=== PATIENT | female | born 1980 | race Caucasian/White ===

== ENCOUNTER 2020-10-19 12:59 | Outpatient (REF) | payer OTHER, SELFPAY | END 2020-10-19 13:00 | disposition home or self-care (01) | LOC: HO.HMGCLDS 12:59 | PROVIDERS: Visit Provider Internal Medicine | DX: Z20.828 Contact with and (suspected) exposure to other viral communicable diseases (principal) | CPT/HCPCS: C9803; U0003 ==

== ENCOUNTER 2021-02-18 13:09 | Outpatient (REF) | payer OTHER, SELFPAY ==
--- NOTE | ~2021-02-18 | MM_ITS ---
EXAMINATION: MM SCREENING DIGITAL BREAST TOMOSYNTHESIS, BILATERAL CLINICAL INFORMATION: Screening. Asymptomatic. Age 41. No prior mammography. No known family history breast cancer. The lifetime risk of breast cancer based on the Tyrer-Cuzick Model is 8%. COMPARISON: None (current study represents initial baseline exam). TECHNIQUE: Digital breast tomosynthesis is performed in both the craniocaudal and mediolateral oblique views along with computer-aided detection (CAD). Synthesized 2D images are generated from the tomosynthesis. Additional left cleavage view is provided. FINDINGS: There are scattered areas of fibroglandular density (ACR BI-RADS breast composition Category b). There are no significant masses, abnormal calcifications, or other abnormalities. The axilla and skin contours are unremarkable. MM/MM tomosynthesis screening BI IMPRESSION: No mammographic evidence of malignancy. ASSESSMENT: BI-RADS 1: Negative RECOMMENDATION: Routine annual mammography screening. This patient's information was entered into a reminder system with a target due date for their next mammogram.
== END 2021-02-18 13:10 | disposition home or self-care (01) ==
LOC: HO.MAMMO 13:09
PROVIDERS: Visit Provider Obstetrics & Gynecology
DX: Z12.31 Encounter for screening mammogram for malignant neoplasm of breast (principal)
CPT/HCPCS: 77063; 77067

== ENCOUNTER 2022-06-22 12:40 | Outpatient (REF) | payer OTHER, SELFPAY ==
--- NOTE | ~2022-06-22 | MM_ITS ---
EXAMINATION: MM SCREENING DIGITAL BREAST TOMOSYNTHESIS, BILATERAL CLINICAL INFORMATION: Screening. Asymptomatic. The lifetime risk of breast cancer based on the Tyrer-Cuzick Model is 11.3%. COMPARISON: Mammography: February 18, 2021 TECHNIQUE: Digital breast tomosynthesis is performed in both the craniocaudal and mediolateral oblique views along with computer-aided detection (CAD). Synthesized 2D images are generated from the tomosynthesis. FINDINGS: The breasts are heterogeneously dense, which may obscure small masses (ACR BI-RADS breast composition Category c). There are no significant masses, abnormal calcifications, or other abnormalities. MM/MM tomosynthesis screening BI IMPRESSION: There are no significant changes from prior study. ASSESSMENT: BI-RADS 1: Negative RECOMMENDATION: Routine annual mammography screening. This patient's information was entered into a reminder system with a target due date for their next mammogram.
== END 2022-06-22 12:41 | disposition home or self-care (01) ==
LOC: HO.MAMMO 12:40
PROVIDERS: Absent Provider Obstetrics & Gynecology; PCP Nurse Practitioner Gerontology; Visit Provider Nurse Practitioner Gerontology
DX: Z12.31 Encounter for screening mammogram for malignant neoplasm of breast (principal)
CPT/HCPCS: 77063; 77067

== ENCOUNTER 2022-07-13 09:03 | Outpatient (REF) | payer OTHER, SELFPAY ==
[2022-07-13 14:02] LABS: CT PCR NOT DETECTED (Not Detect.); NG PCR NOT DETECTED (Not Detect.)
== END 2022-07-13 09:04 | disposition home or self-care (01) ==
LOC: HO.LAB 09:03
PROVIDERS: Visit Provider Obstetrics & Gynecology
DX: N93.9 Abnormal uterine and vaginal bleeding, unspecified (principal)
CPT/HCPCS: 87491; 87591

== ENCOUNTER 2022-08-03 15:07 | Outpatient (REF) | payer OTHER, SELFPAY ==
--- NOTE | ~2022-08-03 | US_ITS ---
EXAM: Pelvic Ultrasound CLINICAL INDICATION: Abnormal bleeding COMPARISON: Pelvic ultrasound May 20, 2020 TECHNIQUE: The pelvis was evaluated using transabdominal and transvaginal imaging. FINDINGS: The uterus measures 8.8 x 5.3 x 5.9 cm in longitudinal by AP by transverse dimension. The endometrial stripe is not thickened and measures 0.4 cm. Uterus demonstrates overall heterogeneous echotexture although at least 3 discrete fibroids are noted, the largest measuring approximately 2.7 cm (previously 2.2 cm). The cervix measures approximately 3 cm in length. Small nabothian cyst is noted. The left ovary measures approximately 2.9 x 2.0 x 2.2 cm and is normal. The right ovary measures approximately 4.2 x 3.0 x 3.8 cm and contains a simple appearing 2.4 cm cyst. There is no free fluid in the pelvis. US/US pelvic and transvaginal IMPRESSION: -Normal thickness endometrial stripe. -Uterine fibroids again noted.
== END 2022-08-03 15:08 | disposition home or self-care (01) ==
LOC: HO.HMGCX 15:07
PROVIDERS: PCP Nurse Practitioner Gerontology; Visit Provider Obstetrics & Gynecology
DX: N93.9 Abnormal uterine and vaginal bleeding, unspecified (principal)
CPT/HCPCS: 76830; 76856

== ENCOUNTER 2022-08-17 08:36 | Outpatient (REF) | payer OTHER, SELFPAY ==
[2022-08-17 10:17] LABS: Hematocrit 42.1 % (37.0-47.0); Hemoglobin 13.5 g/dl (12.0-16.0); Mean Corpuscular HGB Conc 32.1 g/dl (31.0-35.0); Mean Corpuscular Hemoglobin 29.1 pg (27.0-33.0); Mean Corpuscular Volume 90.7 fL (80.0-98.0); Mean Platelet Volume 11.7 fL (9.4-12.3); Platelet Count 239 X10*3/uL (160-400); Red Blood Count 4.64 X10*6/uL (4.20-5.50); Red Cell Distribution Width 12.5 % (11.0-16.0); White Blood Count 5.5 X10*3/uL (4.8-10.8)
[2022-08-17 10:59] LABS: HCG Quantitative < 2 mIU/mL; TSH reflex Free T4 0.68 uIU/mL (0.32-4.0)
[2022-08-18 19:56] LABS: Follicle Stimulating Hormone 5.7 mIU/mL; Lutenizing Hormone 4.2 mIU/mL
== END 2022-08-17 08:37 | disposition home or self-care (01) ==
LOC: HO.LNP 08:36
PROVIDERS: PCP Nurse Practitioner Gerontology; Visit Provider Obstetrics & Gynecology
DX: N93.9 Abnormal uterine and vaginal bleeding, unspecified (principal)
CPT/HCPCS: 58100; 81025; 83001; 83002; 84443; 84702; 85027; 88305

== ENCOUNTER 2023-06-21 12:47 | Outpatient (REF) | payer OTHER, SELFPAY ==
--- NOTE | ~2023-06-21 | US_ITS ---
EXAMINATION: US PELVIS CLINICAL INFORMATION: Benign neoplasm of connective and other soft tissue, unspecified COMPARISON: Pelvic ultrasound examinations dating between 08/03/2022 and 06/03/2008 TECHNIQUE: Ultrasound of the pelvis is performed using both transabdominal and transvaginal transducers along with Doppler. Transvaginal imaging is performed due to inadequate visualization transabdominally. FINDINGS: Uterus: The uterus is anteverted and measures 10.0 x 5.1 x 5.8 cm. Limited visualization of the endometrial stripe. The uterus is smooth in contour. Suspect 2.8 cm or less intramural uterine leiomyomata. Cervical nabothian cysts. Dystrophic calcifications within the cervical canal, possibly related to prior instrumentation. Adnexa: Both ovaries are visualized. There is normal color flow to the adnexa. There is no ovarian torsion identified. There is no pelvic ascites or fluid collection. Bilateral ovarian follicles. Right ovary measures 3.7 x 2.4 x 2.3 cm. Left ovary measures 2.6 x 2.0 x 2.3 cm. US/US pelvic and transvaginal IMPRESSION: Limited visualization of the endometrial stripe. Suspect 2.8 cm or less intramural uterine leiomyomata. Cervical nabothian cysts. Dystrophic calcifications within the cervical canal, possibly related to prior instrumentation.
== END 2023-06-21 12:48 | disposition home or self-care (01) ==
LOC: HO.HMGCX 12:47
PROVIDERS: PCP Nurse Practitioner Gerontology; Visit Provider Obstetrics & Gynecology
DX: D21.9 Benign neoplasm of connective and other soft tissue, unspecified (principal)
CPT/HCPCS: 76830; 76856

== ENCOUNTER 2023-07-04 08:55 | Outpatient (AMB) | payer OTHER, SELFPAY ==
[2023-07-04 09:28] VITALS: BP 108/66; BMI 25.7
--- NOTE | 2023-07-04 09:28 | A.OFFVIS_ITS ---
Intake Vital Signs 07/04/23 09:28 Height 5 ft 7 in Weight 164 lb BMI 25.7 BP 108/66 Intake Visit Reasons: US Follow Up Assessment Specialist Required: No Allergies carisoprodol [From Soma] Allergy (Severe, Verified 07/04/23 09:28) DIFFICULTY BREATHING ciprofloxacin [From CIPRO] Allergy (Severe, Verified 07/04/23 09:28) DIFFICULTY BREATHING grapefruit [GRAPEFRUIT] Allergy (Severe, Verified 07/04/23 09:28) THROAT SWELLS walnut Allergy (Severe, Verified 07/04/23 09:28) THROAT SWELLING Penicillins Allergy (Mild, Verified 07/04/23 09:28) HIVES penicillin V Allergy (Unknown, Verified 07/04/23 09:28) Unknown erythromycin base [From Erythrocin] Adverse Reaction (Mild, Verified 07/04/23 09:28) NAUSEA & VOMITING (TO EES) Erythromycin Allergy (Unknown, Uncoded 07/04/23 09:28) Unknown Is last menstrual period known: Yes Last menstrual period: 07/19/23 Post menopausal: No HPI HPI Comments History of Present Illness Details Presenting for follow-up pelvic ultrasound done on 06/21/2023 which showed the following: Uterus: The uterus is anteverted and measures 10.0 x 5.1 x 5.8 cm. Limited visualization of the endometrial stripe. The uterus is smooth in contour. Suspect 2.8 cm or less intramural uterine leiomyomata. Cervical nabothian cysts. Dystrophic calcifications within the cervical canal, possibly related to prior instrumentation. Adnexa: Both ovaries are visualized. There is normal color flow to the adnexa. There is no ovarian torsion identified.? There is no pelvic ascites or fluid collection. Bilateral ovarian follicles. Right ovary measures 3.7 x 2.4 x 2.3 cm. Left ovary measures 2.6 x 2.0 x 2.3 cm. Pelvic ultrasound done on 08/03/2022 showed: Uterus demonstrates overall heterogeneous echotexture although at least 3 discrete fibroids are noted, the largest measuring approximately 2.7 cm (previously 2.2 cm). The patient is doing well with no complaints, no abnormal uterine bleeding, no pelvic pressure or pelvic pain . [facility] Medical History Anxiety Migraine headache Surgical History H/O resection of liver History of endometrial ablation Hx of section Social History Patient Tobacco Use Status: Former Tobacco user Female Reproductive History Menstrual Age of Menarche: 12 Date of last menstrual period: 07/19/23 control method: none Date of last pap smear: 07/28/20 (negative) Date of Mammogram: 06/22/22 Review of Systems Const All systems reviewed & are unremarkable except as noted in HPI and below Reports as per HPI and Reports no additional complaints GI Reports no additional complaints Reports no additional complaints Physical Exam Vital Signs: Last Vital Signs BP 108/66 07/04/23 09:28 BMI result Body Mass Index 25.7 Assessment & Plan Assessment & Plan (1) Uterine myoma: Code(s): D25.9 - Leiomyoma of uterus, unspecified Plan: Discussed with the patient the findings on pelvic ultrasound & the risk of myosarcoma; discussed with the patient the options of treatment including expectant management versus hysterectomy; the pros and cons, risks benefits of each approach were discussed with the patient including the fact that in cases of myosarcoma, surgical treatment can lead to early diagnosis and positively affects the prognosis; after further discussion, the patient decided to proceed with expectant management. Will repeat pelvic ultrasound periodically. Instructions given to patient to call in case any of the following occurs: pressure symptoms, abnormal uterine bleeding, pelvic pain; and to schedule a future office follow-up appointment for reassessment and to order a repeat ultrasound . All questions answered, the patient verbalized understanding and agreed with the plan . Coding Level of Care Code Est Pt Level 3 (13944) Diagnoses Uterine myoma D25.9
== END 2023-07-04 10:37 | disposition home or self-care (01) ==
LOC: HO.HWS 08:55
PROVIDERS: PCP Nurse Practitioner Gerontology; Visit Provider Obstetrics & Gynecology
DX: D25.9 Leiomyoma of uterus, unspecified (principal)
CPT/HCPCS: 99213

== ENCOUNTER → 2023-07-04 08:55 | Outpatient (BNVA) | payer OTHER, SELFPAY | PROVIDERS: PCP Nurse Practitioner Gerontology; Visit Provider Obstetrics & Gynecology ==

== ENCOUNTER 2023-07-06 07:38 | Outpatient (REF) | payer OTHER, SELFPAY ==
--- NOTE | ~2023-07-06 | MM_ITS ---
EXAMINATION: MM SCREENING DIGITAL BREAST TOMOSYNTHESIS, BILATERAL CLINICAL INFORMATION: Screening. Asymptomatic. COMPARISON: Mammography: This study is compared with prior exams dating back to 2020. TECHNIQUE: Digital breast tomosynthesis is performed in both the craniocaudal and mediolateral oblique views along with computer-aided detection (CAD). Synthesized 2D images are generated from the tomosynthesis. FINDINGS: There are scattered areas of fibroglandular density (ACR BI-RADS breast composition Category b). There is a focal asymmetry in the upper-outer quadrant of the right breast. Additional mammographic imaging is advised. Sonography is at the discretion of the diagnostic radiologist. There are no other significant findings in the remainder of the right breast. In the left breast, there are no significant masses, abnormal calcifications, or other abnormalities. MM/MM tomosynthesis screening BI IMPRESSION: Focal asymmetry of the right breast warrants additional mammographic imaging. No mammographic signs of malignancy left breast. ASSESSMENT: BI-RADS BI-RADS 0 - Incomplete: Needs additional Imaging. RECOMMENDATION: 1. Additional views of the right breast. 2. Targeted ultrasound if warranted after review of the additional views. 3. Radiology department staff will contact the patient for additional imaging. Additional Imaging required This examination should not preclude the clinical evaluation of a suspicious palpable abnormality. This patient's information was entered into a reminder system with a target due date for their next mammogram.
== END 2023-07-06 07:39 | disposition home or self-care (01) ==
LOC: HO.MAMMO 07:38
PROVIDERS: PCP Nurse Practitioner Gerontology; Visit Provider Nurse Practitioner Gerontology
DX: Z12.31 Encounter for screening mammogram for malignant neoplasm of breast (principal)
CPT/HCPCS: 77063; 77067

== ENCOUNTER → 2023-07-06 07:45 | Outpatient (BNV) | payer OTHER, SELFPAY | PROVIDERS: PCP Nurse Practitioner Gerontology; Visit Provider Radiology Diagnostic Radiology | DX: Z12.31 Encounter for screening mammogram for malignant neoplasm of breast (principal) | CPT/HCPCS: 77063; 77067 ==

== ENCOUNTER 2023-07-31 07:56 | Outpatient (AMB) | payer OTHER, SELFPAY ==
--- NOTE | 2023-07-31 08:13 | A.OFFVIS_ITS ---
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 Intake Note: no nconcerns Business Objects Developer Required: No Information Interpreted: non-clinical & clinical Open End Spinning Operator: Open End Spinning Operator Present (Kim SAAVEDRA) Accompanied by: Self / Same As Patient Allergies carisoprodol [From Soma] Allergy (Severe, Verified 07/31/23 08:19) DIFFICULTY BREATHING ciprofloxacin [From CIPRO] Allergy (Severe, Verified 07/31/23 08:19) DIFFICULTY BREATHING grapefruit [GRAPEFRUIT] Allergy (Severe, Verified 07/31/23 08:19) THROAT SWELLS walnut Allergy (Severe, Verified 07/31/23 08:19) THROAT SWELLING Penicillins Allergy (Mild, Verified 07/31/23 08:19) HIVES penicillin V Allergy (Unknown, Verified 07/31/23 08:19) Unknown erythromycin base [From Erythrocin] Adverse Reaction (Mild, Verified 07/31/23 08:19) NAUSEA & VOMITING (TO EES) Erythromycin Allergy (Unknown, Uncoded 07/31/23 08:19) Unknown Is last menstrual period known: Yes Last menstrual period: 07/14/23 HPI HPI Comments History of Present Illness Details Presenting for annual exam. No complaints. 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 Sexual orientation: Straight/Heterosexual Gender identity: Female Female Reproductive History Menstrual Age of Menarche: 12 Duration of menses: 6-7 days Date of last menstrual period: 07/14/23 control method: other (vasectomy) Total pregnancies: 2 Full term: 2 Number of Living Children: 2 Date of last pap smear: 07/28/20 Date of Mammogram: 07/06/23 Review of Systems Const All systems reviewed & are unremarkable except as noted in HPI and below Card Reports as per HPI Resp Reports as per HPI GI Reports as per HPI and Reports no additional complaints Reports as per HPI Physical Exam Vital Signs: BMI result Body Mass Index 25.8 Const General: cooperative, healthy appearing and comfortable Chest Chest palpation & inspection: normal inspection of the chest and normal palpation of entire chest wall Breast/axilla inspection: normal inspection of the breasts and normal inspection of the axillae Breast/axilla palpation: normal palpation of the breasts, normal palpation of the axillae and no axillary lymphadenopathy Resp Effort & Inspection: normal respiratory effort Auscultation: clear to auscultation bilaterally Percussion: percussion normal Cardio Palpation: normal PMI Rate: regular rate Rhythm: regular rhythm Heart sounds: no murmurs and no rubs Peripheral pulses: Peripheral pulses 2+ throughout GI Inspection: Yes normal to inspection Palpation (GI): Soft to palpation, nontender, no guarding, not rigid and No hepatosplenomegaly present Percussion: Yes normal to percussion Auscultation: normal bowel sounds Rectal Exam - Female: deferred General: Yes bladder normal to palpation External Female Exam: No lesion Speculum Exam - Vagina: normal appearance of the vagina, normal palpation, normal vaginal discharge and not erythematous Speculum Exam - Cervix: normal appearance of the cervix and normal palpation Bimanual exam- vagina & uterus: normal bimanual exam, normal palpation, uterine size normal, bladder normal to palpation, consistency normal and normal palpation Bimanual Exam- Adnexa, other: normal adnexae, no masses and no tenderness Assessment & Plan Assessment & Plan (1) Well woman exam: Code(s): Z01.419 - Encounter for gynecological examination (general) (routine) without abnormal findings Plan: Cotesting not indicated this year. Mammogram additional views scheduled in a week. Counseled the patient about the recommended dietary allowance of 1000 mg of Calcium & 600 IU of vitamin D. The patient was instructed to perform monthly self-breast exams and to schedule an annual exam in a year; All questions answered and the patient verbalized understanding. Instructed the patient to schedule annual exam in a year Coding Level of Care Code Est Pt Prev Care 40-64y(11370) Diagnoses Well woman exam Z01.419
[2023-07-31 08:18] VITALS: BP 106/62; BMI 25.8
== END 2023-07-31 08:35 | disposition home or self-care (01) ==
PROVIDERS: Visit Provider Obstetrics & Gynecology
DX: Z01.419 Encounter for gynecological examination (general) (routine) without abnormal findings (principal)
CPT/HCPCS: 99396

== ENCOUNTER → 2023-07-31 07:56 | Outpatient (BNVA) | payer OTHER, SELFPAY | PROVIDERS: Visit Provider Obstetrics & Gynecology ==

== ENCOUNTER 2023-08-08 13:23 | Outpatient (REF) | payer OTHER, SELFPAY ==
--- NOTE | ~2023-08-08 | MM_ITS ---
EXAMINATION: MM DIAGNOSTIC DIGITAL BREAST TOMOSYNTHESIS, RIGHT US BREAST LIMITED, RIGHT MAMMOGRAPHY: CLINICAL INFORMATION: Evaluate focal asymmetry right breast upper outer quadrant seen on screening exam. COMPARISON: Mammography: Screening mammography 07/06/2023, 06/22/2022, 06/20/2021. TECHNIQUE: Digital breast tomosynthesis is performed in both the craniocaudal and mediolateral oblique views along with computer-aided detection (CAD). Synthesized 2D images are generated from the tomosynthesis. FINDINGS: There are scattered areas of fibroglandular density (ACR BI-RADS breast composition Category b). Focal asymmetry in the upper outer quadrant of the right breast does not definitively persist on spot compression views. No suspicious mass or area of architectural distortion is identified. There is a benign-appearing lymph node in the tail of Yang. There are no new suspicious abnormalities in the right breast. ULTRASOUND: CLINICAL INFORMATION: Evaluate focal asymmetric density right upper quadrant, axillary tail region. COMPARISON: None TECHNIQUE: Targeted sonographic evaluation was performed using a high frequency linear transducer. Selected archived documentation. FINDINGS: RIGHT BREAST: There is a mixture of fatty and fibroglandular tissue. No suspicious mass is seen. There is no pathologic acoustic shadowing. There is no cystic abnormality. No ultrasonographic abnormalities identified. MM/MM tomosynthesis added views R IMPRESSION: Focal asymmetry upper outer quadrant right breast shows no imaging correlate and is benign, related to an area of dense fibroglandular tissue. Recommend the patient resume annual screening. OVERALL ASSESSMENT: Mammography: BI-RADS 2 - Benign Findings Ultrasound: BI-RADS 2 - Benign Findings RECOMMENDATION: 1 year F/U This patient's information was entered into a reminder system with a target due date for their next mammogram.
== END 2023-08-08 13:24 | disposition home or self-care (01) ==
LOC: HO.MAMMO 13:23
PROVIDERS: PCP Nurse Practitioner Gerontology; Visit Provider Nurse Practitioner Gerontology
DX: R92.8 Other abnormal and inconclusive findings on diagnostic imaging of breast (principal)
CPT/HCPCS: 76642; 77061; 77065

== ENCOUNTER → 2023-08-08 13:30 | Outpatient (BNV) | payer OTHER, SELFPAY | PROVIDERS: PCP Nurse Practitioner Gerontology; Visit Provider Radiology Diagnostic Radiology | DX: N60.01 Solitary cyst of right breast (principal); R92.2 Inconclusive mammogram | CPT/HCPCS: 76642; 77061; 77062; 77065 ==

== ENCOUNTER 2024-08-05 07:55 | Outpatient (AMB) | payer OTHER, SELFPAY ==
--- NOTE | 2024-08-05 07:56 | A.OFFVIS_ITS ---
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 Operator Required: No Information Interpreted: non-clinical & clinical Automatic Log Cut Off Sawyer: Automatic Log Cut Off Sawyer Present (Kim SAAVEDRA) Accompanied by: Self / Same As Patient Allergies carisoprodol [From Soma] Allergy (Severe, Verified 08/05/24 08:00) DIFFICULTY BREATHING ciprofloxacin [From CIPRO] Allergy (Severe, Verified 08/05/24 08:00) DIFFICULTY BREATHING grapefruit [GRAPEFRUIT] Allergy (Severe, Verified 08/05/24 08:00) THROAT SWELLS walnut Allergy (Severe, Verified 08/05/24 08:00) THROAT SWELLING Penicillins Allergy (Mild, Verified 08/05/24 08:00) HIVES penicillin V Allergy (Unknown, Verified 08/05/24 08:00) Unknown erythromycin base [From Erythrocin] Adverse Reaction (Mild, Verified 08/05/24 08:00) NAUSEA & VOMITING (TO EES) Erythromycin Allergy (Unknown, Uncoded 08/05/24 08:00) Unknown Is last menstrual period known: Yes Last menstrual period: 07/30/24 HPI Comments Details: Presenting for annual exam. No complaints. 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 Sexual orientation: Straight/Heterosexual Gender identity: Female Female Reproductive History Menstrual Age of Menarche: 12 Duration of menses: 6-7 days Date of last menstrual period: 07/30/24 Total pregnancies: 4 Full term: 2 Number of Living Children: 2 Ab induced: 2 Review of Systems Const All systems reviewed & are unremarkable except as noted in HPI and below Card Reports as per HPI Resp Reports as per HPI GI Reports as per HPI and Reports no additional complaints Reports as per HPI Physical Exam Vital Signs: Last Vital Signs BP 110/60 08/05/24 07:58 BMI result Body Mass Index 25.1 Const General: cooperative, healthy appearing and comfortable Chest Chest palpation & inspection: normal inspection of the chest and normal palpation of entire chest wall Breast/axilla inspection: normal inspection of the breasts and normal inspection of the axillae Breast/axilla palpation: normal palpation of the breasts, normal palpation of the axillae and no axillary lymphadenopathy Resp Effort & Inspection: normal respiratory effort Auscultation: clear to auscultation bilaterally Percussion: percussion normal Cardio Palpation: normal PMI Rate: regular rate Rhythm: regular rhythm Heart sounds: no murmurs and no rubs Peripheral pulses: Peripheral pulses 2+ throughout GI Inspection: Yes normal to inspection Palpation (GI): Soft to palpation, nontender, no guarding, not rigid and No hepatosplenomegaly present Percussion: Yes normal to percussion Auscultation: normal bowel sounds Rectal Exam - Female: deferred General: Yes bladder normal to palpation External Female Exam: No lesion Speculum Exam - Vagina: normal appearance of the vagina, normal palpation, normal vaginal discharge and not erythematous Speculum Exam - Cervix: normal appearance of the cervix and normal palpation Bimanual exam- vagina & uterus: normal bimanual exam, normal palpation, uterine size normal, bladder normal to palpation, consistency normal and normal palpation Bimanual Exam- Adnexa, other: normal adnexae, no masses and no tenderness Assessment & Plan Assessment & Plan (1) Well woman exam: Code(s): Z01.419 - Encounter for gynecological examination (general) (routine) without abnormal findings Category: Medical Plan: Cotesting not indicated this year. Mammogram ordered. Counseled the patient about the recommended dietary allowance of 1000 mg of Calcium & 600 IU of vitamin D. The patient was instructed to perform monthly self-breast exams and to schedule an annual exam in a year; All questions answered and the patient verbalized understanding. Instructed the patient to schedule annual exam in a year (2) Uterine myoma: Code(s): D25.9 - Leiomyoma of uterus, unspecified Category: Medical Plan: Will order repeat pelvic ultrasound to follow up on the previous myoma size. Instructions given the patient to schedule pelvic ultrasound and a 2 week follow-up appointment. All questions answered, the patient verbalized understanding. Orders: Orders MM tomosynthesis screening BI Today Z12.31 - Encounter for screening mammogram for malignant neoplasm of breast US pelvic and transvaginal Today D25.9 - Leiomyoma of uterus, unspecified Coding Level of Care Code Est Pt Prev Care 40-64y(64375) Diagnoses Well woman exam Z01.419 Uterine myoma D25.9
[2024-08-05 07:58] VITALS: BP 110/60; BMI 25.1
== END 2024-08-05 08:25 | disposition home or self-care (01) ==
PROVIDERS: PCP Nurse Practitioner Gerontology; Visit Provider Obstetrics & Gynecology
DX: Z01.419 Encounter for gynecological examination (general) (routine) without abnormal findings (principal); D25.9 Leiomyoma of uterus, unspecified
CPT/HCPCS: 99396

== ENCOUNTER → 2024-08-05 07:55 | Outpatient (BNVA) | payer OTHER, SELFPAY | PROVIDERS: PCP Nurse Practitioner Gerontology; Visit Provider Obstetrics & Gynecology ==

== ENCOUNTER 2024-08-07 13:32 | Outpatient (REF) | payer OTHER, SELFPAY ==
--- NOTE | ~2024-08-07 | US_ITS ---
EXAMINATION: US PELVIS CLINICAL INFORMATION: Leiomyomas, last menstrual period 07/30/2024, denies pain. COMPARISON: 06/21/2023. TECHNIQUE: Ultrasound of the pelvis is performed using both transabdominal and transvaginal transducers along with Doppler. Transvaginal imaging is performed due to inadequate visualization transabdominally. FINDINGS: The uterus is anteverted and measures 10.5 x 5.3 x 6.0 cm. 1.0 x 0.6 x 1.1 cm uterine mass not previously identified, and is characteristic of a fibroid. 2.6 x 2.6 x 3.0 cm uterine mass, previously 2.2 x 2.5 x 2.0 cm. 1.8 x 1.9 x 1.9 cm uterine mass, previously 2.8 x 2.0 x 2.3 cm. Endometrium not visualized due to uterine heterogeneity and fibroids. Right ovary measures 3.6 x 2.6 x 3.2 cm, volume 15.7 mL. 2.0 cm simple right ovarian cyst is likely physiologic. Left ovary measures 3.0 x 1.9 x 2.6 cm, volume 7.6 mL. 1.5 cm left ovarian simple cyst is likely physiologic. No significant free fluid. Nabothian cysts. US/US pelvic and transvaginal IMPRESSION: 1. Fibroid uterus. 2. Endometrium not visualized. 3. Bilateral ovarian cysts, largest 2.0 cm right ovary appears simple, likely physiologic. There is no specific indication for additional imaging at this time. Electronically signed by: Kirsty Cabrales MD 08/12/2024 01:40 PM EDT
== END 2024-08-07 13:33 | disposition home or self-care (01) ==
LOC: HO.HMGCX 13:32
PROVIDERS: PCP Nurse Practitioner Gerontology; Visit Provider Obstetrics & Gynecology
DX: D25.9 Leiomyoma of uterus, unspecified (principal)
CPT/HCPCS: 76830; 76856

== ENCOUNTER 2024-08-15 09:16 | Outpatient (REF) | payer OTHER, SELFPAY ==
--- NOTE | ~2024-08-15 | MM_ITS ---
EXAMINATION: MM SCREENING DIGITAL BREAST TOMOSYNTHESIS, BILATERAL CLINICAL INFORMATION: Screening. Asymptomatic. COMPARISON: Mammography: Comparison is made with available priors TECHNIQUE: Digital breast mammography with tomosynthesis is performed in both the craniocaudal and mediolateral oblique views along with computer-aided detection (CAD). FINDINGS: The breasts are heterogeneously dense, which may obscure small masses (ACR BI-RADS breast composition Category c). Asymmetry superior right breast anterior depth on MLO view stable dating back to 2020. There are no significant masses, abnormal calcifications, or other abnormalities. MM/MM tomosynthesis screening BI IMPRESSION: No mammographic evidence of malignancy. ASSESSMENT: BI-RADS BI-RADS 2 - Benign Findings RECOMMENDATION: Routine annual mammography screening. 1 year F/U This examination should not preclude the clinical evaluation of a suspicious palpable abnormality. This patient's information was entered into a reminder system with a target due date for their next mammogram. Electronically signed by: Shira Robles DO 08/26/2024 06:15 PM EDT
== END 2024-08-15 09:17 | disposition home or self-care (01) ==
LOC: HO.MAMMO 09:16
PROVIDERS: PCP Nurse Practitioner Gerontology; Visit Provider Obstetrics & Gynecology
DX: Z12.31 Encounter for screening mammogram for malignant neoplasm of breast (principal)
CPT/HCPCS: 77063; 77067

== ENCOUNTER → 2024-08-15 09:30 | Outpatient (BNV) | payer OTHER, SELFPAY | PROVIDERS: PCP Nurse Practitioner Gerontology; Visit Provider Internal Medicine | DX: Z12.31 Encounter for screening mammogram for malignant neoplasm of breast (principal) | CPT/HCPCS: 77063; 77067 ==

== ENCOUNTER 2024-09-04 09:23 | Outpatient (AMB) | payer OTHER, SELFPAY ==
[2024-09-04 09:40] VITALS: BMI 24.9
--- NOTE | 2024-09-04 09:40 | A.OFFVIS_ITS ---
Vital Signs 09/04/24 09:40 Height 5 ft 7 in Weight 158 lb 11.725 oz BMI 24.9 Intake Visit Reasons: Ultrasound follow up Allergies carisoprodol [From Soma] Allergy (Severe, Verified 08/05/24 08:00) DIFFICULTY BREATHING ciprofloxacin [From CIPRO] Allergy (Severe, Verified 08/05/24 08:00) DIFFICULTY BREATHING grapefruit [GRAPEFRUIT] Allergy (Severe, Verified 08/05/24 08:00) THROAT SWELLS walnut Allergy (Severe, Verified 08/05/24 08:00) THROAT SWELLING Penicillins Allergy (Mild, Verified 08/05/24 08:00) HIVES penicillin V Allergy (Unknown, Verified 08/05/24 08:00) Unknown erythromycin base [From Erythrocin] Adverse Reaction (Mild, Verified 08/05/24 08:00) NAUSEA & VOMITING (TO EES) Erythromycin Allergy (Unknown, Uncoded 08/05/24 08:00) Unknown HPI Comments Details: Presenting for ultrasound follow-up regarding uterine myoma seen on ultrasound in 2022. The patient is doing well with no pelvic pressure, or pelvic pain. The patient is complaining of heavy menstrual cycles associated with pelvic cramping and passage of blood clots Pelvic Ultrasound done recently showed the following: The uterus is anteverted and measures 10.5 x 5.3 x 6.0 cm. 1.0 x 0.6 x 1.1 cm uterine mass not previously identified, and is characteristic of a fibroid. 2.6 x 2.6 x 3.0 cm uterine mass, previously 2.2 x 2.5 x 2.0 cm. 1.8 x 1.9 x 1.9 cm uterine mass, previously 2.8 x 2.0 x 2.3 cm. Endometrium not visualized due to uterine heterogeneity and fibroids. Right ovary measures 3.6 x 2.6 x 3.2 cm, volume 15.7 mL. 2.0 cm simple right ovarian cyst is likely physiologic. Left ovary measures 3.0 x 1.9 x 2.6 cm, volume 7.6 mL. 1.5 cm left ovarian simple cyst is likely physiologic. No significant free fluid. Nabothian cysts. 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 Sexual orientation: Straight/Heterosexual Gender identity: Female Female Reproductive History Menstrual Age of Menarche: 12 Review of Systems Const All systems reviewed & are unremarkable except as noted in HPI and below Reports as per HPI and Reports no additional complaints GI Reports no additional complaints Reports no additional complaints Physical Exam Vital Signs: BMI result Body Mass Index 24.9 Assessment & Plan Assessment & Plan (1) Uterine myoma: Code(s): D25.9 - Leiomyoma of uterus, unspecified Category: Medical Plan: Discussed with the patient the findings on pelvic ultrasound & the risk of myosarcoma; discussed with the patient the options of treatment including expe ctant management versus hysterectomy; the pros and cons, risks benefits of each approach were discussed with the patient including the fact that in cases of myosarcoma, surgical treatment can lead to early diagnosis and positively affects the prognosis; after further discussion, the patient decided to proceed with expectant management. Will repeat pelvic ultrasound periodically. Instructions given to patient to call in case any of the following occurs: pressure symptoms, abnormal uterine bleeding, pelvic pain; and to schedule a years pelvic ultrasound and a follow-up appointment . All questions answered, the patient verbalized understanding and agreed with the plan . 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 Discussed with the patient the different causes of abnormal bleeding including thyroid disorders, uterine and ovarian pathology, endometrial hyperplasia, carcinoma and other potential causes. Discussed with the patient the work up including CBC (to r/o anemia), TSH, prolactin, pelvic Ultrasound, endometrial biopsy to r/o endometrial pathology. All questions answered and the patient verbalized understanding. Instructed the patient to schedule an appointment for an endometrial biopsy in 2 weeks. Orders: Orders TSH reflex Free T4 Today N93.9 - Abnormal uterine and vaginal bleeding, unspecified Prolactin Today N93.9 - Abnormal uterine and vaginal bleeding, unspecified HCG Quantitative Today N93.9 - Abnormal uterine and vaginal bleeding, unspecified Complete Blood Count no Diff Today N93.9 - Abnormal uterine and vaginal bleeding, unspecified US pelvic and transvaginal 1 Year D25.9 - Leiomyoma of uterus, unspecified Coding Level of Care Code Est Pt Level 3 (02802) Diagnoses Uterine myoma D25.9 Abnormal uterine bleeding (AUB) N93.9
== END 2024-09-04 10:16 | disposition home or self-care (01) ==
LOC: HO.HWS 09:23
PROVIDERS: PCP Nurse Practitioner Gerontology; Visit Provider Obstetrics & Gynecology
DX: D25.9 Leiomyoma of uterus, unspecified (principal); N93.9 Abnormal uterine and vaginal bleeding, unspecified
CPT/HCPCS: 99213

== ENCOUNTER → 2024-09-04 09:23 | Outpatient (BNVA) | payer OTHER, SELFPAY | PROVIDERS: PCP Nurse Practitioner Gerontology; Visit Provider Obstetrics & Gynecology ==

== ENCOUNTER 2024-09-18 09:51 | Outpatient (AMB) | payer OTHER, SELFPAY ==
--- NOTE | 2024-09-18 10:07 | MHC.OFFVIS ---
Intake Visit Reasons: EMB Allergies carisoprodol [From Soma] Allergy (Severe, Verified 08/05/24 08:00) DIFFICULTY BREATHING ciprofloxacin [From CIPRO] Allergy (Severe, Verified 08/05/24 08:00) DIFFICULTY BREATHING grapefruit [GRAPEFRUIT] Allergy (Severe, Verified 08/05/24 08:00) THROAT SWELLS walnut Allergy (Severe, Verified 08/05/24 08:00) THROAT SWELLING Penicillins Allergy (Mild, Verified 08/05/24 08:00) HIVES penicillin V Allergy (Unknown, Verified 08/05/24 08:00) Unknown erythromycin base [From Erythrocin] Adverse Reaction (Mild, Verified 08/05/24 08:00) NAUSEA & VOMITING (TO EES) Erythromycin Allergy (Unknown, Uncoded 08/05/24 08:00) Unknown HPI Comments Details: Presenting for EMB PFSH Medical History Anxiety Migraine headache Surgical History H/O resection of liver Hx of section History of endometrial ablation Social History Household Members: Spouse Household Members Other:: son Housing: House Alcohol intake: current Alcohol intake frequency: holidays/special occasions only Patient Tobacco Use Status: Former Tobacco user Current occupational status: employed 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 Sexual orientation: Straight/Heterosexual Gender identity: Female Female Reproductive History Menstrual Age of Menarche: 12 Review of Systems Const All systems reviewed & are unremarkable except as noted in HPI and below Reports as per HPI and Reports no additional complaints GI Reports no additional complaints Reports no additional complaints Office Procedures Endometrial Biopsy Details: The patient was counseled regarding the indication and benefits of endometrial sampling to rule out endometrial pathology including not limited to endometrial hyperplasia or endometrial cancer and others; The alternatives (Either do nothing vs. hysteroscopy D&C) & the risks were discussed with the patient including but not limited: pain, uterine perforation, bleeding, infection, possible injury to bladder, bowel, ureter, possible need for blood transfusion with all its possible risks. The patient verbalized understanding all questions answered and signed consent. Urine test done in the office was negative The patient was placed into the dorsal lithotomy position; a speculum was inserted in the vagina. Using aseptic technique for the procedure, the cervix was cleansed with Betadine. The anterior lip of the cervix was grasped with a single tooth tenaculum. The uterus was sounded to 7 cm with a 4 mm Pipelle was used. Tissues samples were obtained and placed in formalin, in a patient labeled container and sent to the pathology department. At the end of the procedure, there was minimal bleeding noted The patient tolerated the procedure well and was discharged in good condition with the following instructions: Nothing in the vagina until the bleeding stops. No sex until the bleeding stops, to call if any of the following occurs: fever (>100.4), flu-like symptoms, abdominal pain, heavy bleeding, four smelling vaginal discharge. The patient was instructed to schedule a Follow up appointment in 2 weeks to discuss pathology results of the biopsy and treatment options. This note was generated with a voice recognition program. Some errors may have been overlooked during the review of this note. Sometimes these errors may affect the content or meaning of a given sentence. 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
== END 2024-09-18 10:56 | disposition home or self-care (01) ==
LOC: HO.HWS 09:51
PROVIDERS: PCP Nurse Practitioner Gerontology; Visit Provider Obstetrics & Gynecology
DX: N93.9 Abnormal uterine and vaginal bleeding, unspecified (principal)
CPT/HCPCS: 58100

== ENCOUNTER 2024-09-18 09:51 | Outpatient (REF) | payer OTHER, SELFPAY | END 2024-09-18 09:52 | disposition home or self-care (01) | LOC: HO.LNP 09:51 | PROVIDERS: PCP Nurse Practitioner Gerontology; Visit Provider Obstetrics & Gynecology | DX: N93.9 Abnormal uterine and vaginal bleeding, unspecified (principal) | CPT/HCPCS: 58100; 88305 ==

== ENCOUNTER 2025-01-15 11:41 | Outpatient (AMB) | payer OTHER, SELFPAY ==
[2025-01-15 12:12] VITALS: BMI 24.7
--- NOTE | 2025-01-15 12:12 | MHC.OFFVIS ---
Vital Signs 01/15/25 12:12 Height 5 ft 7 in Weight 158 lb BMI 24.7 Intake Visit Reasons: EMB follow up/do not vamsi x2 Allergies carisoprodol [From Soma] Allergy (Severe, Verified 08/05/24 08:00) DIFFICULTY BREATHING ciprofloxacin [From CIPRO] Allergy (Severe, Verified 08/05/24 08:00) DIFFICULTY BREATHING grapefruit [GRAPEFRUIT] Allergy (Severe, Verified 08/05/24 08:00) THROAT SWELLS walnut Allergy (Severe, Verified 08/05/24 08:00) THROAT SWELLING Penicillins Allergy (Mild, Verified 08/05/24 08:00) HIVES penicillin V Allergy (Unknown, Verified 08/05/24 08:00) Unknown erythromycin base [From Erythrocin] Adverse Reaction (Mild, Verified 08/05/24 08:00) NAUSEA & VOMITING (TO EES) Erythromycin Allergy (Unknown, Uncoded 08/05/24 08:00) Unknown HPI Comments Details: The patient is presenting for follow-up to discuss the results of her abnormal uterine bleeding workup and options of treatment. The following workup was done.: H&H, TSH, hCG= not done yet GC and chlamydia were negative. Endometrial biopsy pathology showed the following: Endometrium, biopsy: Benign dyssynchronous endometrium, late secretory and inactive; no atypia or carcinoma Co testing was done in 08/08 was negative. Mammogram was BI-RADS 2 in 08/12 Pelvic ultrasound showed the following: The uterus is anteverted and measures 10.5 x 5.3 x 6.0 cm. 1.0 x 0.6 x 1.1 cm uterine mass not previously identified, and is characteristic of a fibroid. 2.6 x 2.6 x 3.0 cm uterine mass, previously 2.2 x 2.5 x 2.0 cm. 1.8 x 1.9 x 1.9 cm uterine mass, previously 2.8 x 2.0 x 2.3 cm. Endometrium not visualized due to uterine heterogeneity and fibroids. Right ovary measures 3.6 x 2.6 x 3.2 cm, volume 15.7 mL. 2.0 cm simple right ovarian cyst is likely physiologic. Left ovary measures 3.0 x 1.9 x 2.6 cm, volume 7.6 mL. 1.5 cm left ovarian simple cyst is likely physiologic. No significant free fluid. 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 Sexual orientation: Straight/Heterosexual Gender identity: Female Female Reproductive History Menstrual Age of Menarche: 12 Review of Systems Const All systems reviewed & are unremarkable except as noted in HPI and below Reports as per HPI and Reports no additional complaints GI Reports no additional complaints Reports no additional complaints Physical Exam Vital Signs: BMI result Body Mass Index 24.7 Assessment & Plan Assessment & Plan (1) Abnormal uterine bleeding (AUB): Comment: With 3 myomas History of endometrial ablation 2012 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 Discussed with the patient the findings on pelvic ultrasound & the risk of myosarcoma; in addition reviewed with the patient that malignancy and pre malignancy cannot be ruled out without hysterectomy for pathological evaluation ; furthermore, explained to the patient the limitation of pelvic ultrasound and endometrial biopsy in the setting. Discussed with the patient the options of treatment for myomas including: control pills, Mirena IUD, progesterone treatment are contraindicated given her history of liver tumor with Mirena IUD, GnRH agonist/antagonist, uterine artery embolization or definitive surgical treatment including hysterectomy. All pros and cons, risks and benefits of all options were discussed with the patient. The patient is a to proceed with definitive surgical management. Discussed with the patient the different types of hysterectomies including, vaginal, laparoscopic assisted vaginal, robotic assisted laparoscopic,& abdominal with BSO. All pros, cons, r/b of each approach were discussed the patient including evidence that morbidity is less and recovery is shorter with minimally invasive approaches to hysterectomy. Discussed with the patient the lack of availability of the robot [employer] robot and/or minimally invasive forestry aid specialist at [facility]. Will refer to [facility] for minimally invasive feltmaker and weigher surgery Instructed the patient to call our office back in case a referral appointment is not scheduled, missed or canceled so that we will assist on rescheduling another appointment, the patient verbalized understanding agreed with the plan. Coding Level of Care Code Est Pt Level 3 (37772) Diagnoses Abnormal uterine bleeding (AUB) N93.9
--- OUTSIDE RECORDS SUMMARY | 2025-01-15 14:12 | XMS_ITS | Continuity of Care Document ---
Author Organization [place] - [facility], [facility] Address [address] [place] [address] Care Team Providers Care Pig Machine Supervisor Name Role Phone MARIA ISABEL VIGIL Primary Care Provider Assessment Encounter Date Assessment Date Assessment LastModified by Organization Details LastModified Time 01/02/2025 01/02/2025 Patient presents for allergy follow up. Doing well on immunotherapy without adverse reactions. Epi-pen prescription is up to date. Patient will continue current therapy and follow up in another 6 months for reevaluation. Not available 01/02/2025 11:25:02 Plan of Treatment Reminders Order Date Submit Date Provider Last Modified By Organization Details Last Modified Time Details Appointments [facility]- Allergy f-up 6mon 2024 09:45A M WES BENNETT PA-C Not available Not available Not available Lab None recorded . Referral None recorded . Procedures None recorded . Surgeries None recorded . Imaging None recorded . Medication Orders None recorded . Patient TargetsNo targets recorded. Patient InstructionsNo instructions recorded. Reason for Referral None Reported. Problems Name Problem SNOMED Code Status Onset Date Resolution Date Notes Provider Name and Address Organization Details Recorded Time Allergic rhinitis caused by pollen 38333041 Active 2022 Allergic rhinitis due to pollen; Note: Date Diagnosed: 06/19/2023 9:13 AM (J30.1) Allergic rhinitis due to pollen; Note: Date Diagnosed: 12/26/2022 9:12 AM (J30.1) ; Start Date : 12/26/2022 Allergic rhinitis due to pollen; Note: Date Diagnosed: 07/11/2022 11:11 AM (J30.1) ; Start Date : 07/11/2022 Allergic rhinitis due to pollen; Note: Date Diagnosed: 01/10/2022 11:17 AM (J30.1) ; Start Date : 01/10/2022 Allergy NOS due to pollen; Note: Date Diagnosed: 04/14/2021 9:10 AM (J30.1) ; Start Date : 04/14/2021 Not Available [facility] 02:44:01 Allergic rhinitis 51290547 Active 2023 Allergic rhinitis: Due to other allergen; Note: Date Diagnosed: 12/06/2023 2:42 PM (477.8) Note: Date Diagnosed: 12/06/2023 2:42 PM (477.8) Allergic rhinitis: Due to other allergen; Note: Date Diagnosed: 11/23/2023 2:07 PM (477.8) Note: Date Diagnosed: 11/23/2023 2:07 PM (477.8) ; Start Date : 11/23/2023 Allergic rhinitis: Due to other allergen; Note: Date Diagnosed: 11/09/2023 1:22 PM (477.8) Note: Date Diagnosed: 11/09/2023 1:22 PM (477.8) ; Start Date : 11/09/2023 Allergic rhinitis: Due to other allergen; Note: Date Diagnosed: 10/26/2023 10:18 AM (477.8) Note: Date Diagnosed: 10/26/2023 10:18 AM (477.8) ; Start Date : 10/26/2023 Allergic rhinitis: Due to other allergen; Note: Date Diagnosed: 10/05/2023 1:57 PM (477.8) Note: Date Diagnosed: 10/05/2023 1:57 PM (477.8) ; Start Date : 10/05/2023 Allergic rhinitis: Due to other allergen; Note: Date Diagnosed: 09/27/2023 2:03 PM (477.8) Note: Date Diagnosed: 09/27/2023 2:03 PM (477.8) ; Start Date : 09/27/2023 Allergic rhinitis: Due to other allergen; Note: Date Diagnosed: 09/14/2023 11:52 AM (477.8) Note: Date Diagnosed: 09/14/2023 11:52 AM (477.8) ; Start Date : 09/14/2023 Allergic rhinitis: Due to other allergen; Note: Date Diagnosed: 08/31/2023 2:09 PM (477.8) Note: Date Diagnosed: 08/31/2023 2:09 PM (477.8) ; Start Date : 08/31/2023 Allergic rhinitis: Due to other allergen; Note: Date Diagnosed: 08/24/2023 2:04 PM (477.8) Note: Date Diagnosed: 08/24/2023 2:04 PM (477.8) ; Start Date : 08/24/2023 Allergic rhinitis: Due to other allergen; Note: Date Diagnosed: 08/10/2023 1:57 PM (477.8) Note: Date Diagnosed: 08/10/2023 1:57 PM (477.8) ; Start Date : 08/10/2023 Allergic rhinitis: Due to other allergen; Note: Date Diagnosed: 07/27/2023 3:14 PM (477.8) Note: Date Diagnosed: 07/27/2023 3:14 PM (477.8) ; Start Date : 07/27/2023 Allergic rhinitis: Due to other allergen; Note: Date Diagnosed: 07/20/2023 1:26 PM (477.8) Note: Date Diagnosed: 07/20/2023 1:26 PM (477.8) ; Start Date : 07/20/2023 Allergic rhinitis: Due to other allergen; Note: Date Diagnosed: 07/13/2023 2:30 PM (477.8) Note: Date Diagnosed: 07/13/2023 2:30 PM (477.8) ; Start Date : 07/13/2023 Allergic rhinitis: Due to other allergen; Note: Date Diagnosed: 07/05/2023 2:00 PM (477.8) Note: Date Diagnosed: 07/05/2023 2:00 PM (477.8) ; Start Date : 07/05/2023 Allergic rhinitis: Due to other allergen; Note: Date Diagnosed: 02/08/2023 11:00 AM (477.8) Note: Date Diagnosed: 02/08/2023 11:00 AM (477.8) ; Start Date : 02/08/2023 Allergic rhinitis: Due to other allergen; Note: Date Diagnosed: 12/21/2022 2:24 PM (477.8) Note: Date Diagnosed: 12/21/2022 2:24 PM (477.8) ; Start Date : 12/21/2022 Allergic rhinitis: Due to other allergen; Note: Date Diagnosed: 12/07/2022 1:35 PM (477.8) Note: Date Diagnosed: 12/07/2022 1:35 PM (477.8) ; Start Date : 12/07/2022 Allergic rhinitis: Due to other allergen; Note: Date Diagnosed: 10/26/2022 2:09 PM (477.8) Note: Date Diagnosed: 10/26/2022 2:09 PM (477.8) ; Start Date : 10/26/2022 Allergic rhinitis: Due to other allergen; Note: Date Diagnosed: 10/09/2022 9:39 AM (477.8) Note: Date Diagnosed: 10/09/2022 9:39 AM (477.8) ; Start Date : 10/09/2022 Allergic rhinitis: Due to other allergen; Note: Date Diagnosed: 09/15/2022 10:43 AM (477.8) Note: Date Diagnosed: 09/15/2022 10:43 AM (477.8) ; Start Date : 09/15/2022 Allergic rhinitis: Due to other allergen; Note: Date Diagnosed: 08/31/2022 2:09 PM (477.8) Note: Date Diagnosed: 08/31/2022 2:09 PM (477.8) ; Start Date : 08/31/2022 Allergic rhinitis: Due to other allergen; Note: Date Diagnosed: 08/18/2022 1:44 PM (477.8) Note: Date Diagnosed: 08/18/2022 1:44 PM (477.8) ; Start Date : 08/18/2022 Allergic rhinitis: Due to other allergen; Note: Date Diagnosed: 08/03/2022 2:58 PM (477.8) Note: Date Diagnosed: 08/03/2022 2:58 PM (477.8) ; Start Date : 08/03/2022 Allergic rhinitis: Due to other allergen; Note: Date Diagnosed: 05/12/2022 11:17 AM (477.8) Not Not Available [facility] 4 01:08:16 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 Procedures Surgical History Date Name Laterality Status Provider Name and Address Organization Details Recorded Time 01/02/20 25 Allergy Immunotherapy Injections completed [facility]ES RN [address] [facility] [place] [address] [place] [address], [phone], [place] - [facility] 01/02/2025 10:27:33 12/12/19 25 Allergy Immunotherapy Injections completed KERI DANIELLE [address],[place] [address] [place] [address], [phone], [place] - [facility] 12/12/2024 13:34:04 11/21/19 25 Allergy Immunotherapy Injections completed KERI BRAUN [address],[place] [address] [place] [address], [phone], [place] - [facility] 11/21/2024 13:47:53 11/07/20 24 Allergy Immunotherapy Injections completed DUANE SANCHES RN [address] [facility] [facility] [address] [place], [phone], [facility] - [facility] 11/07/2024 13:04:08 10/10/20 24 Allergy Immunotherapy Injections completed KERI BRAUN [address],[place] [address], [place], [address], [facility] - [facility] 10/10/2024 13:54:38 09/26/20 24 Allergy Immunotherapy Injections completed KERI DANIELLE [address],[place] [address], [place], [address], [place] [facility] 09/26/2024 14:51:04 09/05/20 24 Allergy Immunotherapy Injections completed DUANE SANCHES RN [address],[place], [place], [address], [place] [facility] 09/05/2024 14:03:45 08/22/20 24 Allergy Immunotherapy Injections completed ABBY CASTILLO, RMA [address], [place], [address], [place] [facility] 08/22/2024 13:26:59 08/07/20 24 Allergy Immunotherapy Injections completed ABBY CARREROC, RMA [address],[place] [address], [address], [place] [facility] 08/07/2024 11:24:46 07/11/20 24 Allergy Immunotherapy Injections completed WARD BRAUNA [address],[place] [address], [place], [address], [place] [facility] 07/11/2024 14:11:34 06/27/20 24 Allergy Immunotherapy Injections completed WARD BRAUNA [address], [place], [address], [place] [facility] 06/27/2024 10:18:08 06/10/20 24 Allergy Immunotherapy Injections completed ABBY CASTILLO, RMA [address],[place] [address], [address], [place] [facility] 06/10/2024 14:04:41 05/30/20 24 Allergy Immunotherapy Injections completed ABBY CASTILLO RMA [address], [place], [address], [place] [facility] 05/30/2024 14:13:36 05/09/20 24 Allergy Immunotherapy Injections completed BROOK CARBAJAL RMA [address],[place], [place], [address], [place] [facility] 05/09/2024 11:38:27 04/25/20 24 Allergy Immunotherapy Injections completed ABBY CASTILLO RMA [address],[place] [place], [address], [facility] - [facility] 04/25/2024 14:09:19 04/11/20 24 Allergy Immunotherapy Injections completed BROOK CARBAJAL, [facility] [address], [address], [facility] - [facility] 04/11/2024 14:11:07 Imaging Results None recorded. Procedure Notes None recorded. Medical Equipment None Reported. Allergies Allergen ID Allergen Name Allergen Category Reaction Reaction Severity Criticality Documentation Date Start Date Code Code System Note Provider Name and Address Organization Details Recorded Time 967976 Penicilli n Not available hives Not available Not available 04/01/2024 28331 RxNorm React ion: other react ion, Hives ; Not Available [facility] 01:07[facility] Medications Name Sig Start Date Stop Date Status Note LastModified by Organization Details LastModified Time clindamycin HCl 300 mg capsule TAKE 1 CAPSULE BY MOUTH EVERY 6 HOURS FOR 7 DAYS active Not Available Not Available No t Available Lidocaine Viscous 2 % mucosal solution APPLY 5 ML TOPICALLY 4 TIMES A DAY NEEDED FOR MOUTH SORE PAIN active Not Available Not Available No t Available ondansetron HCl 4 mg tablet TAKE 1 TABLET BY MOUTH EVERY 8 HOURS NEEDED FOR NAUSEA active Not Available Not Available No t Available triamcinolo ne acetonide 0.025 % topical cream APPLY A THIN FILM TOPICALLY TO AFFECTED AREA TWICE DAILY NEEDED FOR 14 DAYS 06/27 completed Not Available Not Available Not Available topiramate 25 mg sprinkle capsule TAKE 3 CAPSULES BY MOUTH EVERY DAY 06/27 completed Not Available Not Available Not Available epinephrine 0.3 mg/0.3 mL injection, auto-inject or Inject 1 pen injector single dose as needed active Not Available Not Available No t Available hydroxyzine HCl 10 mg tablet TAKE 1-2 TABLET BY MOUTH AT BEDTIME NEEDED active Not Available Not Available No t Available duloxetine 60 mg capsule,del ayed release TAKE 1 CAPSULE BY MOUTH EVERY DAY 06/27 completed Not Available Not Available Not Available Gavilyte-C 240 gram-22.72 gram-6.72 gram-5.84 gram oral solution MIX ENTIRE BOTTLE WITH WATER AND DRINK 8 OZ EVERY 10-15 MINUTES UNTIL SOLUTION IS GONE active Not Available Not Available No t Available Vitals Date Recorded Body weight Body mass index (BMI) Body height Provider Name and Address Organization Details Last Updated DateTime 01/02/2025 23722.93 g 26.2 kg/m2 170.18 cm Cristiane Atkins [place] - [facility] 01/02/2025 09:44:28 Social History None recorded. Functional Status None recorded. Mental Status None recorded. Family History Nothing Reported. Medical History No medical history recorded. Gynecological HistoryNo gynecological history recorded. Obstetrics History GPAL:G 0 P 0 0 0 0 Past Encounters Encounter ID Performer Location Encounter Start Date Encounter Closed Date Diagnosis/Indication Diagnosis SNOMED-CT Code Diagnosis ICD10 Code Diagnosis Note [id number] ABBY ENMASUMAN [facility] [address] [place] [phone] 12/12/2024 13:29:05 12/12/2024 13:33:29 Perennial allergic rhinitis 494561613 J30.89 [id number] PADMINI VALLADARES MD [facility] [address] [phone] 01/02/2025 09:17:03 01/02/2025 09:54:11 Allergic rhinitis 14006228 J30.9 [id number] DUANE SANCHES RN All[facility] [address] [place] [phone] 01/02/2025 09:18:24 01/02/2025 10:28:09 Perennial allergic rhinitis 862302798 J30.89 Health Concerns Section Related Observation LastModified by Organization Detai ls LastModified Time None Recorded Concern Status LastModified by Organization Details LastModified Time None Recorded Payers Encounter Date Sequence Insurance Name Policy Number Policy Chris Covered Member ID Chris Member ID Guarantor Name 01/02/[address] [place] [address] [id number] Diana Lipscomb [id number] Diana Lipscomb Notes Date Note Type Note Provider Name and Address Organization Details Recorded Time 01/02/2025 text/html 44-year-old female presents for 6-month allergy review. Recently moved to monthly dosing. Allergies are much improved. Only needs occasional antihistamine. PADMINI VALLADARES MD [address] [place] [address], [phone], [place] - [facility] 01/02/2025 12:50:46 OBGyn Episode No OBEpisode recorded.
--- OUTSIDE RECORDS SUMMARY | 2025-01-15 14:13 | XMS_ITS | Clinical Summary ---
Author Organization [facility] Address [address] [place] [address] Phone Care Team Providers Care Drivers' Cash Clerk Name Role Phone Waldo Gellerie JOSEPH Primary Care Provider [phone] Allergies Active Allergy Reactions Criticality Noted Date Comments Carisoprodol-Aspirin Cough 09/17/2012 With SOB Ciprofloxacin-Hydrocortison e Nausea And Vomiting 09/17/2012 Erythromycin Nausea And Vomiting,Wheezing 09/17/2012 Penicillins Hives 09/17/2012 Encounters Date Type Department Care Team Description 12/05/2024 Telephone Gastroenterology - 299 [facility] [address] [phone] Siomara Adams [place] 12/01/2024 Telephone Gastroenterology - [address] [phone] Lyle Chowdhury MD from Last 3 Months Social History Tobacco Use Types Packs/Day Years Used Date Smoking Tobacco: Never Assessed Comments Unknown Sex and Gender Information Value Date Recorded Sex Assigned at Not on file Legal Sex Female 1:34 PM EST Gender Identity Not on file Sexual Orientation Not on file Plan of Treatment Upcoming Encounters Date Type Department Care Team (Late st Contact Info) Description 01/19/2025 1:30 PM EST Hospital Encounter [facility] [address] [place] [address] Lyle Chowdhury MD [address] [id number] Health Maintenance Due Date Last Done Comments Breast Cancer Screening 1980 DTaP,Tdap,and Td Vaccines (1 - Tdap) 02/05/1999 Hepatitis A Vaccines (1 of 2 - Risk 2-dose series) 02/05/1999 Hepatitis B Vaccines (1 of 3 - 19+ 3-dose series) 02/05/1999 Cervical Cancer Screening: P ap Smear 02/05/2001 Depression Screening 10/17/2022 HIV Screening 10/17/2022 Hepatitis C Screening 10/17/2022 Social Influencers of Health Screening 10/17/2022 COVID-19 Vaccine (1 - 2023-2 5 season) 2024 Influenza Vaccine (#1) 2024 HIB Vaccines Aged Out No longer eligi ble based on patient's age to complete this topic HPV Vaccines Aged Out No longer eligi ble based on patient's age to complete this topic IPV Vaccines Aged Out No longer eligi ble based on patient's age to complete this topic MMR Vaccines Aged Out No longer eligi ble based on patient's age to complete this topic Meningococcal ACWY Vaccine Aged Out N o longer eligible based on patient's age to complete this topic Meningococcal B Vacine Aged Out No lo nger eligible based on patient's age to complete this topic Pneumococcal Vaccine: Pediat rics (0 to 5 Years) and At-Risk Patients (6 to 64 Years) Aged Out No longer eligible b ased on patient's age to complete this topic RSV Immunization Patients Un vineet 20 months Aged Out No longer eligible b ased on patient's age to complete this topic Varicella Vaccines Aged Out No longer eligible based on patient's age to complete this topic Insurance * Guarantor: Diana eBy Account Type Relation to Patient Date of Phone Billing Address Personal/Family Self 1980 [phone] (Work) [address] [place] [phone] [facility] Care Teams Drivers' Cash Clerk Relationship Specialty Start Date End Date Francy Geller NP [address] [facility] [place] [address] PCP - General Internal Medicine 12/01/24
--- OUTSIDE RECORDS SUMMARY | 2025-01-15 14:13 | XMS_ITS | Continuity of Care Document ---
Author Organization [place] - [facility], Allergy Address [address] [address] Care Team Providers Care Assembler Molded Frames Name Role Phone MARIA ISABEL VIGIL Primary Care Provider [phone] Assessment Encounter Date Assessment Date Assessment LastModified by Organization Details LastModified Time 01/02/2025 01/02/2025 Visit With: Fani Phan Use of Antihistamines: No If yes: Vial Test Change in medications: No If yes ? ? ? Increase in asthma symptoms No Asthma Hx If yes, inhaler use: Reaction to last injections: No If yes: ? ? ? Allergy Symptoms: Other: ? ? ? Missed: Dose Aware of Vial Test Notes:? ? ?Patient aware now monthly for immunotherapy injections [email or web address] Not available 01/02/2025 10:27:55 Plan of Treatment Reminders Order Date Submit Date Provider Last Modified By Organization Details Last Modified Time Details Appointments 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 Procedures Surgical History Date Name Laterality Status Provider Name and Address Organization Details Recorded Time 01/02/20 25 Allergy Immunotherapy Injections completed DUANE SANCHES RN 100 [facility],[address], [address], [facility] - [facility] [place] 01/02/2025 10:27:33 12/12/19 25 Allergy Immunotherapy Injections completed KERI DANIELLE [address], [address], [facility] - [facility] [place] 12/12/2024 13:34:04 11/21/19 25 Allergy Immunotherapy Injections completed KERI BRAUN 100 [facility],[address], [address], [place] - [facility] [place] 11/21/2024 13:47:53 11/07/20 24 Allergy Immunotherapy Injections completed DUANE SANCHES RN 100 [facility],[address], [address], [place] - [facility] [place] 11/07/2024 13:04:08 10/10/20 Allergy Immunotherapy Injections completed KERI BRAUN [facility] [place],[address], [address], [place] - [facility] [place] 10/10/2024 13:54:38 09/26/20 24 Allergy Immunotherapy Injections completed ABBY CARREROC, RMA [address], [place], [address], [place] [facility] [place] 09/26/2024 14:51:04 09/05/20 24 Allergy Immunotherapy Injections completed DUANE SANCHES RN [address], [place], [address], [place] [facility] [place] 09/05/2024 14:03:45 08/22/20 24 Allergy Immunotherapy Injections completed ABBY CARREROC, RMA [address], [place], [address], [place] [facility] [place] 08/22/2024 13:26:59 08/07/20 24 Allergy Immunotherapy Injections completed ABBY CARREROC, RMA [address], [place], [address], [place] [facility] [place] 08/07/2024 11:24:46 07/11/20 24 Allergy Immunotherapy Injections completed KERI BRAUN [address], [place], [address], [place] [facility] [place] 07/11/2024 14:11:34 06/27/20 24 Allergy Immunotherapy Injections completed KERI BRAUN [address], [place], [address], [place] [facility] [place] 06/27/2024 10:18:08 06/10/20 24 Allergy Immunotherapy Injections completed ABBY CASTILLO, RMA [address], [place], [address], [place] [facility] [place] 06/10/2024 14:04:41 05/30/20 24 Allergy Immunotherapy Injections completed ABBY CASTILLO RMA [address], [place], [address], [place] [facility] [place] 05/30/2024 14:13:36 05/09/20 24 Allergy Immunotherapy Injections completed FANI PHAN RMA [address], [place], [address], [place] [facility] [place] 05/09/2024 11:38:27 04/25/20 24 Allergy Immunotherapy Injections completed ABBY CASTILLO, RMA 100 [facility] 100, [place], [address], [facility] 04/25/2024 14:09:19 04/11/20 24 Allergy Immunotherapy Injections completed FANI PHAN, RMA [address], [place], [address], [facility] 04/11/2024 14:11:07 Imaging Results None recorded. Procedure Notes None recorded. Medical Equipment None Reported. Allergies Allergen ID Allergen Name Allergen Category Reaction Reaction Severity Criticality Documentation Date Start Date Code Code System Note Provider Name and Address Organization Details Recorded Time 257323 Penicilli n Not available hives Not available Not available 04/01/2024 00449 RxNorm React ion: other react ion, Hives ; Not Available [facility] 01:07:46 Medications Name Sig Start Date Stop [...] Address Organization Details Last Updated DateTime 01/02/2025 84600.93 g 26.2 kg/m2 170.[address] - [facility] 01/02/2025 09:44:28 Social History None recorded. Functional Status None recorded. Mental Status None recorded. Family History Nothing Reported. Medical History No medical history recorded. Gynecological HistoryNo gynecological history recorded. Obstetrics History GPAL:G 0 P 0 0 0 0 Past Encounters Encounter ID Performer Location Encounter Start Date Encounter Closed Date Diagnosis/Indication Diagnosis SNOMED-CT Code Diagnosis ICD10 Code Diagnosis Note [id number] KERI DANIELLE Allergy [address] [place] [address] 12/12/2024 13:29:05 12/12/2024 13:33:29 Perennial allergic rhinitis 058892714 J30.89 [id number] PADMINI VALLADARES MD [facility] [address] [address] 01/02/2025 09:17:03 01/02/2025 09:54:11 Allergic rhinitis 54499376 J30.9 [id number] DUANE SANCHES RN Allergy [address] [place] [address] 01/02/2025 09:18:24 01/02/2025 10:28:09 Perennial allergic rhinitis 507925697 J30.89 Health Concerns Section Related Observation LastModified by Organization Detai ls LastModified Time None Recorded Concern Status LastModified by Organization Details LastModified Time None Recorded Payers Encounter Date Sequence Insurance Name Policy Number Policy Chris Covered Member ID Chris Member ID Guarantor Name 01/02/[address] [place] [address] [id number] Diana Lipscomb [id number] Diana Lipscomb Notes Date Note Type Note Provider Name and Address Organization Details Recorded Time 01/02/2025 text/html 44-year-old female presents for 6-month allergy review. Recently moved to monthly dosing. Allergies are much improved. Only needs occasional antihistamine. PADMINI VALLADARES MD [address] [place] [address], [place], [address], [facility] - [facility] 01/02/2025 12:50:46 OBGyn Episode No OBEpisode recorded.
--- OUTSIDE RECORDS SUMMARY | 2025-01-15 14:13 | XMS_ITS | Data Portability ---
Author Organization [place] - [facility], Allergy Address [address] [address] Care Team Providers Care Transition Advisor Name Role Phone MARIA ISABEL VIGIL Primary Care Provider Assessment Encounter Date Assessment Date Assessment LastModified by Organization Details LastModified Time 11/07/2024 11/07/2024 Visit With: Duane Sanches RN Use of Antihistamines: No If yes: Vial Test Change in medications: No If yes ? ? ? Increase in asthma symptoms No Asthma Hx If yes, inhaler use: Reaction to last injections: No If yes: ? ? ? Allergy Symptoms: Other: ? ? ? Missed: Dose Aware of Vial Test Notes:? ? ? [email or web address] Not available 11/07/2024 13:04:22 11/21/2024 11/21/2024 Visit With: Fani Phan Use of Antihistamines: No If yes: Vial Test Change in medications: No If yes ? ? ? Increase in asthma symptoms If yes, inhaler use: Reaction to last injections: No If yes: ? ? ? Allergy Symptoms: Other: ? ? ? Missed: Dose Aware of Vial Test Notes:? ? ? [email or web address] Not available 11/21/2024 13:48:01 12/12/2024 12/12/2024 Visit With: KERI Galicia Use of Antihistamines: No If yes: Vial Test Change in medications: No If yes ? ? ? Increase in asthma symptoms If yes, inhaler use: Reaction to last injections: No If yes: ? ? ? Allergy Symptoms: Other: ? ? ? Missed: 1 week Dose Repeated Aware of Vial Test Notes:? ? ? [email or web address] Not available 12/12/2024 13:34:16 01/02/2025 01/02/2025 Visit With: Fani Phan Use [...] immunotherapy injections [email or web address] Not available 01/02/2025 10:27:55 01/02/2025 01/02/2025 Patient presents for allergy follow up. Doing well on immunotherapy without adverse reactions. Epi-pen prescription is up to date. Patient will continue current therapy and follow up in another 6 months for reevaluation. Not available 01/02/2025 11:25:02 Plan of Treatment Reminders Order Date Submit Date Provider Last Modified By Organization Details Last Modified Time Details Appointments [facility]- Allergy f-up 6mon 2024 09:45A M [...] Recorded Time Allergic rhinitis caused by pollen 77593641 Active 2022 Allergic rhinitis due to pollen; [...] ; Start Date : 04/14/[address] 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 Procedures Surgical History Date Name Laterality Status Provider Name and Address Organization Details Recorded Time 01/02/20 25 Allergy Immunotherapy Injections completed DUANE SANCHES RN 100 [facility] [place],[address], [place], [address], [place] [facility] [place] 01/02/2025 10:27:33 12/12/19 25 Allergy Immunotherapy Injections completed KERI GALICIA [address] [place] [address], [address], [facility] - [facility] [place] 12/12/2024 13:34:04 11/21/19 25 Allergy Immunotherapy Injections completed KERI BRAUN [address] [facility], [place], [address], [facility] - [facility] [place] 11/21/2024 13:47:53 11/07/20 24 Allergy Immunotherapy Injections completed DUANE SANCHES RN 100 [facility] [place],[address] [place] [address], [address], [place] [facility] [place] 11/07/2024 13:04:08 10/10/20 24 Allergy Immunotherapy Injections completed KERI BRAUN [address] [place] [address], [address], [facility] - [facility] [place] 10/10/2024 13:54:38 09/26/20 24 Allergy Immunotherapy Injections completed KERI GALICIA [address] [place] [address], [address], [place] [facility] [place] 09/26/2024 14:51:04 09/05/20 24 Allergy Immunotherapy Injections completed DUANE SANCHES RN 100 [facility] [place],[address], [place], [address], [place] [facility] [place] 09/05/2024 14:03:45 08/22/20 24 Allergy Immunotherapy Injections completed ABBY CASTILLO, RMA [address], [place], [address], [place] [facility] [place] 08/22/2024 13:26:59 08/07/20 24 Allergy Immunotherapy Injections completed ABBY ALISEC, RMA [address], [place], [address], [place] - [facility] [place] 08/07/2024 11:24:46 07/11/20 24 Allergy Immunotherapy Injections completed WARD BRAUNA [address], [place], [address], [place] [facility] [place] 07/11/2024 14:11:34 06/27/20 24 Allergy Immunotherapy Injections completed WARD BRAUNA [address], [place], [address], [place] [facility] [place] 06/27/2024 10:18:08 06/10/20 24 Allergy Immunotherapy Injections completed ABBY CASTILLO, RMA [address], [place], [address], [place] [facility] [place] 06/10/2024 14:04:41 05/30/20 24 Allergy Immunotherapy Injections completed ABBY CASTILLO RMA [address], [place], [address], [place] [facility] [place] 05/30/2024 14:13:36 05/09/20 24 Allergy Immunotherapy Injections completed WARD BRAUNA [address], [place], [address], [place] [facility] [place] 05/09/2024 11:38:27 04/25/20 24 Allergy Immunotherapy Injections completed ABBY CASTILLO RMA [address], [place], [address], [place] [facility] [place] 04/25/2024 14:09:19 04/11/20 24 Allergy Immunotherapy Injections completed FANI PHAN RMA [address], [place], [address], [place] [facility] [place] 04/11/2024 14:11:07 Imaging Results None recorded. Procedure Notes None recorded. Medical Equipment None Reported. Allergies Allergen ID Allergen Name Allergen Category Reaction Reaction Severity Criticality Documentation Date Start Date Code Code System Note Provider Name and Address Organization Details Recorded Time 445642 Penicilli n Not available hives Not available Not available 04/01/2024 48843 RxNorm React ion: other react ion, Hives ; Not Available [facility] 01:07:46 Medications Name Sig Start Date [...] Address Organization Details Last Updated DateTime 01/02/2025 65937.93 g 26.2 kg/m2 170.18 cm Cristiane Atkins [place] - [facility] 01/02/2025 09:44:28 Social History None recorded. Functional Status None recorded. Mental Status None recorded. Family History Nothing Reported. Medical History No medical history recorded. Gynecological HistoryNo gynecological history recorded. Obstetrics History GPAL:G 0 P 0 0 0 0 Past Encounters Encounter ID Performer Location Encounter Start Date Encounter Closed Date Diagnosis/Indication Diagnosis SNOMED-CT Code Diagnosis ICD10 Code Diagnosis Note [id number] FANI PHAN A [facility] [place],[address] [place] [address] 04/11/2024 14:03:05 04/11/2024 14:33:35 Perennial allergic rhinitis 704007595 J30.89 [id number] [facility], A Allergy 100 [facility],[address] [place] [address] 04/25/2024 14:07:46 04/25/2024 14:51:59 Perennial allergic rhinitis 180262983 J30.89 [id number] FANI PHAN [facility] Allergy [address] [place] [address], [address] [place] [address] 05/09/2024 11:37:41 05/09/2024 12:00:21 Perennial allergic rhinitis 249136017 J30.89 [id number] [facility] 100 [facility],[address] [place] [address] 05/30/2024 13:25:19 05/30/2024 14:32:34 Perennial allergic rhinitis 825585623 J30.89 [id number] [facility], A Allergy 100 [facility] [place],[address] [place] [address] 06/10/2024 13:27:01 06/10/2024 14:08:21 Perennial allergic rhinitis 538336090 J30.89 [id number] CORA CAI MD [facility] [place] 100 [facility] [place] [address] 06/27/2024 10:36:44 06/27/2024 11:07:41 Allergic rhinitis 45180543 J30.9 Allergic r hinitis caused by pollen 38756255 J30.1 [id number] FANI PHAN A Allergy 100 [facility],[address] [place] [address] 06/27/2024 10:07:00 06/27/2024 10:57:30 Perennial allergic rhinitis 768366844 J30.89 [id number] FANI PHAN A Allergy 100 [facility],[address] [place] [address] 07/11/2024 14:01:32 07/11/2024 14:19:20 Perennial allergic rhinitis 046569808 J30.89 [id number] [facility], RMA Allergy 100 [facility],[address] [place] [address] 08/07/2024 10:44:16 08/07/2024 11:25:16 Perennial allergic rhinitis 497810011 J30.89 [id number] [facility], RMA Allergy 100 [facility],[address] [place] [address] 08/22/2024 13:16:28 08/22/2024 13:43:27 Perennial allergic rhinitis 394045603 J30.89 [id number] DUANE SANCHES RN Allergy [address] [place] [address],[address] [place] [address] 09/05/2024 13:49:02 09/05/2024 14:04:08 Perennial allergic rhinitis 028832136 J30.89 [id number] [facility], A Allergy 100 [facility],[address] [place] [address] 09/26/2024 14:16:37 09/26/2024 14:51:48 Perennial allergic rhinitis 372219382 J30.89 [id number] FANI PHAN A Allergy 100 [facility],[address] [place] [address] 10/10/2024 13:18:53 10/10/2024 13:55:13 Perennial allergic rhinitis 350664799 J30.89 [id number] DUANE SANCHES RN Allergy [address] [place] [address],[address] [place] [address] 11/07/2024 10:22:45 11/07/2024 13:04:38 Perennial allergic rhinitis 172152733 J30.89 [id number] FANI PHAN A Allergy 100 [facility],[address] [place] [address] 11/21/2024 13:35:54 11/21/2024 13:48:17 Perennial allergic rhinitis 331018874 J30.89 [id number] ABBY CASTILLO, KERI Allergy [address] [address] 12/12/2024 13:29:05 12/12/2024 13:33:29 Perennial allergic rhinitis 059451547 J30.89 [id number] PADMINI VALLADARES MD [facility] of [address] [address] 01/02/2025 09:17:03 01/02/2025 09:54:11 Allergic rhinitis 19056952 J30.9 [id number] DUANE SANCHES RN Allergy [address] [place] [address] 01/02/2025 09:18:24 01/02/2025 10:28:09 Perennial allergic rhinitis 202748035 J30.89 Health Concerns Section Related Observation LastModified by Organization Detai ls LastModified Time None Recorded Concern Status LastModified by Organization Details LastModified Time None Recorded Advance Directives Directive None Recorded Payers Encounter Date Sequence Insurance Name Policy Number Policy Chris Covered Member ID Chris Member ID Guarantor Name 11/07/2024 1 [facility] [id number] Diana Cincotta [id number] Diana Cincotta 11/21/[address] [place] [address] [id number] Diana Cincotta [id number] Diana Cincotta 12/12/2024 1 [facility] [id number] Diana Cincotta [id number] Diana Cincotta 01/02/2025 1 [facility] [id number] Diana Cincotta [id number] Diana Cincotta 01/02/2025 1 [facility] [id number] Diana Cincotta [id number] Diana Cincotta Notes Date Note Type Note Provider Name and Address Organization Details Recorded Time 01/02/2025 text/html 44-year-old female presents for 6-month allergy review. Recently moved to monthly dosing. Allergies are much improved. Only needs occasional antihistamine. PADMINI VALLADARES MD [address] [place] [address], [place], [address], [facility] - [facility] 01/02/2025 12:50:46 OBGyn Episode No OBEpisode recorded.
== END 2025-01-15 12:30 | disposition home or self-care (01) ==
PROVIDERS: PCP Nurse Practitioner Gerontology; Visit Provider Obstetrics & Gynecology
DX: N93.9 Abnormal uterine and vaginal bleeding, unspecified (principal)
CPT/HCPCS: 99213

== ENCOUNTER 2025-08-17 12:35 | Outpatient (AMB) | payer OTHER, SELFPAY ==
[2025-08-17 12:47] VITALS: BP 128/62
--- NOTE | 2025-08-17 12:47 | A.OFFVIS_ITS ---
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 Electronic: Organ Tuner Electronic Present (Kim) Accompanied by: Self / Same As Patient Allergies carisoprodol (From Soma) Allergy (Severe, Verified 08/17/25 12:48) DIFFICULTY BREATHING ciprofloxacin (From CIPRO) Allergy (Severe, Verified 08/05/24 08:00) DIFFICULTY BREATHING grapefruit (GRAPEFRUIT) Allergy (Severe, Verified 08/05/24 08:00) THROAT SWELLS walnut Allergy (Severe, Verified 08/05/24 08:00) THROAT SWELLING Penicillins Allergy (Mild, Verified 08/05/24 08:00) HIVES penicillin V Allergy (Unknown, Verified 08/05/24 08:00) Unknown erythromycin base (From Erythrocin) Adverse Reaction (Mild, Verified 08/05/24 08:00) NAUSEA & VOMITING (TO EES) Erythromycin Allergy (Unknown, Uncoded 08/05/24 08:00) Unknown Is last menstrual period known: Yes Last menstrual period: 08/05/25 HPI Comments Details: Presenting for annual exam. No complaints. Last Pap/HPV? Last Mammogram was in 08/12, BI-RADS 2 Lasr screening colonoscopy was few years ago, recommendation was to repeat in 5 years The patient is scheduled for hysterectomy at [facility] in in October 13 [facility] Medical History Liver tumor (benign) Anxiety Migraine headache Surgical History H/O resection of liver Hx of section History of endometrial ablation Social History Household Members: Spouse Household Members Other:: son Housing: House Alcohol intake: current Alcohol intake frequency: holidays/special occasions only Patient Tobacco Use Status: Former Tobacco user Current occupational status: employed 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 Sexual orientation: Straight/Heterosexual Gender identity: Female Female Reproductive History Menstrual Age of Menarche: 12 Duration of menses: 8-10 days Date of last menstrual period: 08/05/25 Total pregnancies: 3 Full term: 2 Review of Systems Const All systems reviewed & are unremarkable except as noted in HPI and below Card Reports as per HPI Resp Reports as per HPI GI Reports as per HPI and Reports no additional complaints Reports as per HPI Physical Exam Vital Signs: Last Vital Signs BP 128/62 08/17/25 12:47 Const General: cooperative, healthy appearing and comfortable Chest Chest palpation & inspection: normal inspection of the chest and normal palpation of entire chest wall Breast/axilla inspection: normal inspection of the breasts and normal inspection of the axillae Breast/axilla palpation: normal palpation of the breasts, normal palpation of the axillae and no axillary lymphadenopathy Resp Effort & Inspection: normal respiratory effort Auscultation: clear to auscultation bilaterally Percussion: percussion normal Cardio Palpation: normal PMI Rate: regular rate Rhythm: regular rhythm Heart sounds: no murmurs and no rubs Peripheral pulses: Peripheral pulses 2+ throughout GI Inspection: Yes normal to inspection Palpation (GI): Soft to palpation, nontender, no guarding, not rigid and No hepatosplenomegaly present Percussion: Yes normal to percussion Auscultation: normal bowel sounds Rectal Exam - Female: deferred General: Yes bladder normal to palpation External Female Exam: No lesion Speculum Exam - Vagina: normal appearance of the vagina, normal palpation, normal vaginal discharge and not erythematous Speculum Exam - Cervix: normal appearance of the cervix and normal palpation Bimanual exam- vagina & uterus: normal bimanual exam, normal palpation, uterine size normal, bladder normal to palpation, consistency normal and normal palpation Bimanual Exam- Adnexa, other: normal adnexae, no masses and no tenderness Assessment & Plan Assessment & Plan (1) Well woman exam: Code(s): Z01.419 - Encounter for gynecological examination (general) (routine) without abnormal findings Category: Medical Plan: Cotesting done. Mammogram scheduled in few days Counseled the patient about the recommended dietary allowance of 1000 mg of Calcium & 600 IU of vitamin D. The patient was instructed to perform monthly self-breast exams and to schedule an annual exam in a year; All questions answered and the patient verbalized understanding. Instructed the patient to schedule annual exam in a year Orders: Orders MM tomosynthesis screening BI Today Z12.31 - Encounter for screening mammogram for malignant neoplasm of breast US pelvic and transvaginal Today D25.9 - Leiomyoma of uterus, unspecified Referrals Gastroenterology Referral Z12.11 - Encounter for screening for malignant neoplasm of colon Coding Level of Care Code Est Pt Prev Care 40-64y(59012) Diagnoses Well woman exam Z01.419
--- OUTSIDE RECORDS SUMMARY | 2025-08-17 13:46 | XMS_ITS | Clinical Summary ---
Author Organization [facility] [address] [facility] Address [address] [place] [address] Phone Care Team Providers Care Order Control Clerk Blood Bank Name Role Phone Duyen Francy JOSEPH Primary Care Provider [phone] Allergies Active Allergy Reactions Criticality Noted Date Comments Carisoprodol-Aspirin Cough 09/17/2012 With SOB Ciprofloxacin-Hydrocortison e Nausea And Vomiting 09/17/2012 Erythromycin Nausea And Vomiting,Wheezing 09/17/2012 Penicillins Hives 09/17/2012 Medications hydrOXYzine HCL (ATARAX) 10 mg tablet 1 tablet (10 mg total). 12/16/2024 Active ondansetron (ZOFRAN) 4 mg tablet Take 1 tablet (4 mg total) by mouth every 8 (eight) hours if needed. for nausea 10/10/2024 Active Surgical History Surgery Date Site/Laterality Comments LIVER SURGERY tumor removed CHOLECYSTECTOMY Medical History Medical History Date Comments Palpitations Social History Tobacco Use Types Packs/Day Years Used Date Smoking Tobacco: Former Cigarettes Smokeless Tobacco: Never Tobacco Cessation:Counseling Given: Not Answered Alcohol Use Standard Drinks/Week Comments Yes 0 (1 standard drink = 0.6 oz pur e alcohol) occ Interpersonal Safety Answer Date Record ed Physical Abuse Unrecognized value 01/19/2025 Verbal Abuse Unrecognized value 01/19/2025 Comments No Sex and Gender Information Value Date Recorded Sex Assigned at Female 01/16/2025 5:43 PM EST Legal Sex Female 1:34 PM EST Gender Identity Female 01/16/2025 5:43 PM EST Sexual Orientation Straight 01/16/2025 5: 49 PM EST Obstetrics History Last Filed Vital Signs Vital Sign Reading Time Taken Comments Blood Pressure 117/69 01/19/2025 3:09 PM EST Pulse 83 01/19/2025 3:09 PM EST Temperature 36.6 C (97.9 F) 01/19/2025 2:49 PM EST Respiratory Rate 12 01/19/2025 3:09 PM EST Oxygen Saturation 100% 01/19/2025 3:09 PM EST Inhaled Oxygen Concentration - - Weight 74.8 kg (165 lb) 01/19/2025 2:05 PM EST Height 170.2 cm (5' 7 ) 01/19/2025 2:05 PM EST Body Mass Index 25.84 01/19/2025 2:05 PM EST Plan of Treatment Health Maintenance Due Date Last Done Comments Breast Cancer Screening 1980 Hepatitis A Vaccines (1 of 2 - Risk 2-dose series) 02/05/1999 Hepatitis B Vaccines (1 of 3 - 19+ 3-dose series) 02/05/1999 Cervical Cancer Screening: Pap Smear 02/05/2001 HIV Screening 10/17/2022 Hepatitis C Screening 10/17/2022 Social Influencers of Health Screening 10/17/2022 Depression Screening 11/19/2024 Influenza Vaccine (#1) 2025 , 09/08/2023, 11/15/2022, Additional history exists DTaP,Tdap,and Td Vaccines (2 - Td or Tdap) 11/22/2033 11/22/2023 Colorectal Cancer Screening: Colonoscopy 01/19/2035 01/19/2025 COVID-19 Vaccine Completed 08/16/2024, , 11/15/2022, Additional history exists HIB Vaccines Aged Out No longer eligi [...] age to complete this topic Meningococcal B Vaccine Aged Out No l onger eligible based on patient's age to complete this topic Pneumococcal Vaccine: Pediatrics (0 to 5 Years) and At-Risk Patients (6 to 49 Years) Aged Out No longer eligible based on patient's age to complete this topic RSV Immunization Patients Under 20 months Aged Out No longer eligible based on patient's age to complete this topic Varicella Vaccines Aged Out No longer eligible based on patient's age to complete this topic Procedures Procedure Name Priority Date/Time Associated Diagnosis Comments COLONOSCOPY Routine 01/19/2025 2:48 PM EST Family history of colonic polyps Family history of colon cancer from Last 3 Months or Most Recently Relevant to Health Maintenance Results * COLONOSCOPY Anesthesia - MAC; [facility] ENDOSCOPY (01/19/2025 2:48 PM EST) Anatomical Region Laterality Modality Endoscopy 01/19/2025 2:20 PM EST Impressions 01/19/2025 2:50 PM EST - The entire examined colon is normal on direct and retroflexion views. - No specimens collected. Recommendation: - Repeat colonoscopy in 5 years for screening purposes. Narrative 01/19/2025 2:50 PM EST [facility] GI Patient Name: Diana Lipscomb Procedure Date: 01/19/2025 2:20 PM Date of : 1980 Age: 44 Room: ROOM 15 Gender: Female Note Status: Finalized Attending MD: Lyle Chowdhury MD, Procedure Date No Time: 01/19/2025 Procedure: Colonoscopy Indications: Colon cancer screening in patient at increased risk: Family history of 1st-degree relative with colon polyps before age 60 years, Screening in patient at increased risk: Family history of 1st-degree relative with colorectal cancer before age 60 years Providers: Lyle Chowdhury MD Referring MD: Lyle Chowdhury MD Medicines: Propofol per Anesthesia Complications: No immediate complications. Estimated Blood Loss: Estimated blood loss: none. Procedure: Pre-Anesthesia Assessment: - ASA Grade Assessment: II - A patient with mild systemic disease. After I obtained informed consent, the scope was passed under direct vision. Throughout the procedure, the patient's blood pressure, pulse, and oxygen saturations were monitored continuously.The Olympus Colonoscope was introduced through the anus and advanced to the cecum, identified by appendiceal orifice and ileocecal valve. The colonoscopy was performed without difficulty. The patient tolerated the procedure well. The quality of the bowel preparation was good. Findings: The perianal and digital rectal examinations were normal. The entire examined colon appeared normal on direct and retroflexion views. Procedure Code(s): --- Professional --- G0105, Colorectal cancer screening; colonoscopy on individual at high risk Diagnosis Code(s): --- Professional --- Z83.71, Family history of colonic polyps Z80.0, Family history of malignant neoplasm of digestive organs CPT copyright 2020 [employer]. All rights reserved. The codes documented in this report are preliminary and upon self propelled hot mix roller operator review may be revised to meet current compliance requirements. Lyle Chowdhury MD 01/19/2025 2:50:08 PM This report has been signed electronically.Lyle Chowdhury MD Number of Addenda: 0 Note Initiated On: 01/19/2025 2:20 PM Scope In: Scope Out: Endoscopy Department at [facility] - [address] [place] [id number] Procedure Note Lyle Chowdhury MD - 01/19/2025 [facility] GI Patient Name: Diana Lipscomb Procedure Date: 01/19/2025 2:20 PM Date of : 1980 Age: 44 Room: ROOM 15 Gender: Female Note Status: Finalized Attending MD: Lyle Chowdhury MD, Procedure Date No Time: 01/19/2025 Procedure: Colonoscopy Indications: Colon cancer screening in patient at increasedrisk: Family history of 1st-degree relative with colon polyps before age 60 years, Screening in patient at increased risk: Family history of 1st-degreerelative with colorectal cancer before age 60 years Providers: Lyle Chowdhury MD Referring MD: Lyle Chowdhury MD Medicines: Propofol per Anesthesia Complications: No immediate complications. Estimated Blood Loss: Estimated blood loss: none. Procedure: Pre-Anesthesia Assessment: - ASA Grade Assessment: II - A patient with mild systemic disease. After I obtained informed consent, the scope was passed under direct vision. Throughout theprocedure, the patient's blood pressure, pulse, and oxygen saturations were monitored continuously.The Olympus Colonoscope was introduced through the anus and advanced to the cecum, identified by appendiceal orifice and ileocecal valve. The colonoscopy was performed without difficulty. The patient tolerated the procedure well. The quality of the bowel preparation was good. Findings: The perianal and digital rectal examinations were normal. The entire examined colon appeared normal on direct and retroflexion views. Procedure Code(s): --- Professional --- G0105, Colorectal cancer screening; colonoscopy on individual at high risk Diagnosis Code(s): --- Professional --- Z83.71, Family history of colonic polyps Z80.0, Family history of malignant neoplasm of digestive organs CPT copyright 2020 [employer]. All rights reserved. The codes documented in this report are preliminary and upon self propelled hot mix roller operator reviewmay be revised to meet current compliance requirements. Lyle Chowdhury MD 01/19/2025 2:50:08 PM This report has been signed electronically.Lyle Chowdhury MD Number of Addenda: 0 Note Initiated On: 01/19/2025 2:20 PM Scope In: Scope Out: Endoscopy Department at [address] [phone] IMPRESSION: - The entire examined colon is normal on direct and retroflexion views. - No specimens collected. Recommendation: - Repeat colonoscopy in 5 years for screeningpurposes. Lyle Chowdhury MD GI~PROCEDURE ORDERABLES Fin al Result from Last 3 Months or Most Recently Relevant to Health Maintenance Insurance * Guarantor: Diana Lipscomb Account Type Relation to Patient Date of Phone Billing Address Personal/Family Self 1980 [phone] (Work) [address] [place] [id number] [facility] Care Teams Order Control Clerk Blood Bank Relationship Specialty Start Date End Date Francy Geller NP [facility] [address] PCP - General Internal Medicine 12/01/24
== END 2025-08-17 13:16 | disposition home or self-care (01) ==
LOC: HO.HWS 12:35
PROVIDERS: PCP Nurse Practitioner Gerontology; Visit Provider Obstetrics & Gynecology
DX: Z01.419 Encounter for gynecological examination (general) (routine) without abnormal findings (principal)
CPT/HCPCS: 99396; 99459

== ENCOUNTER 2025-08-17 12:35 | Outpatient (REF) | payer OTHER, SELFPAY | END 2025-08-17 12:36 | disposition home or self-care (01) | LOC: HO.LNP 12:35 | PROVIDERS: PCP Nurse Practitioner Gerontology; Visit Provider Obstetrics & Gynecology | DX: Z01.419 Encounter for gynecological examination (general) (routine) without abnormal findings (principal); Z12.31 Encounter for screening mammogram for malignant neoplasm of breast; Z12.11 Encounter for screening for malignant neoplasm of colon; D25.9 Leiomyoma of uterus, unspecified | CPT/HCPCS: 87626; 88175 ==

== ENCOUNTER 2025-08-21 09:23 | Outpatient (REF) | payer OTHER, SELFPAY ==
--- OUTSIDE RECORDS SUMMARY | 2025-08-21 09:53 | XMS_ITS | Clinical Summary ---
Author Organization [facility] [address] [facility] Address [address] [place] [address] Phone Care Team Providers Care Spiral Spring Winder Name Role Phone Duyen Francy JOSEPH Primary Care Provider [phone] Allergies Active Allergy Reactions Criticality Noted Date [...] 02/05/1999 Cervical Cancer Screening: Pap Smear 02/05/2001 HPV Vaccines (1 - 3-dose SCDM series) 02/05/2007 HIV Screening 10/17/2022 Hepatitis C Screening 10/17/2022 Social Influencers of Health Screening 10/17/2022 Depression Screening 11/19/2024 Influenza Vaccine (#1) 2025 , 09/08/2023, 11/15/2022, Additional history exists DTaP,Tdap,and Td Vaccines (2 - Td or Tdap) 11/22/2033 11/22/2023 Colorectal Cancer Screening: Colonoscopy 01/19/2035 01/19/2025 RSV Immunization Adult Patients (1 - 1-dose 75+ series) 02/05/2055 COVID-19 Vaccine Completed 08/16/2024, , 11/15/2022, Additional [...] Results * COLONOSCOPY Anesthesia - MAC; [facility] ENDOSCOPY (01/19/2025 2:48 PM EST) Anatomical [...] neoplasm of digestive organs CPT copyright 2020 [employer]. All rights reserved. The codes documented in this report are preliminary and upon encephalographer review may be revised to meet current compliance requirements. Lyle Chowdhury MD 01/19/2025 2:50:08 PM This report has been signed electronically.Lyle Chowdhury MD Number of Addenda: 0 Note Initiated On: 01/19/2025 2:20 PM Scope In: Scope Out: Endoscopy Department at [facility] - [address] [place] [phone] Procedure Note Lyle Chowdhury MD - 01/19/2025 [...] neoplasm of digestive organs CPT copyright 2020 [employer]. All rights reserved. The codes documented in this report are preliminary and upon encephalographer reviewmay be revised to meet current compliance requirements. Lyle Cohwdhury MD 01/19/2025 2:50:08 PM This report has been signed electronically.Lyle Chowdhury MD Number of Addenda: 0 Note Initiated On: 01/19/2025 2:20 PM Scope In: Scope Out: Endoscopy Department at [facility] - [address] [place] [phone] IMPRESSION: - The entire examined colon is normal on direct and retroflexion views. - No specimens collected. Recommendation: - Repeat colonoscopy in 5 years for screeningpurposes. Lyle Chowdhury MD GI~PROCEDURE ORDERABLES Fin al Result from Last 3 Months or Most Recently Relevant to Health Maintenance Insurance * Guarantor: Diana Lipscomb Account Type Relation to Patient Date of Phone Billing Address Personal/Family Self 1980 [phone] (Work) [address] [place] [phone] [facility] Care Teams Spiral Spring Winder Relationship Specialty Start Date End Date Francy Geller NP [address] [facility] [place] [address] PCP - General Internal Medicine 12/01/24
--- OUTSIDE RECORDS SUMMARY | 2025-08-21 09:53 | XMS_ITS | Data Portability ---
Author Organization [place] - [facility], Allergy Address [address] [address] Care Team Providers Care Machine Cleaner Name Role Phone MARIA ISABEL VIGIL Primary Care Provider Assessment Encounter Date Assessment Date Assessment LastModified by Organization Details LastModified Time 04/23/2025 04/23/2025 Visit With: KERI Galicia Use of Antihistamines: No If yes: Vial Test Change in medications: No If yes Increase in asthma symptoms If yes, inhaler use: Reaction to last injections: No If yes: Allergy Symptoms: Other: Missed: Dose Aware of Vial Test Aware: Notes: [email or web address] Not available 04/23/2025 14:05:28 05/28/2025 05/28/2025 Visit With: KERI Galicia Use of Antihistamines: Yes If yes: Vial Test Change in medications: No If yes Increase in asthma symptoms If yes, inhaler use: Reaction to last injections: No If yes: Allergy Symptoms: Other: Missed: Dose Aware of Vial Test Yes Aware: Notes: [email or web address] Not available 05/28/2025 13:48:58 06/25/2025 06/25/2025 Visit With: Fani Phan Use of Antihistamines: No If yes: Vial Test Yes Change in medications: No If yes Increase in asthma symptoms If yes, inhaler use: Reaction to last injections: No If yes: Allergy Symptoms: Other: Missed: Dose Aware of Vial Test Aware: Notes: [email or web address] Not available 06/25/2025 15:59:36 07/03/2025 07/03/2025 Patient presents for allergy follow up. Doing well on immunotherapy without adverse reactions. Epi-pen prescription is up to date. Patient will continue current therapy and follow up in another 6 months for reevaluation. [email or web address] Not available 07/03/2025 10:20:11 07/30/2025 07/30/2025 Visit With: KERI Galicia Use of Antihistamines: Yes If yes: Vial Test Change in medications: No If yes Increase in asthma symptoms If yes, inhaler use: Reaction to last injections: No If yes: Allergy Symptoms: Other: Missed: Dose Aware of Vial Test Aware: Notes: [email or web address] Not available 07/30/2025 14:03:33 Plan of Treatment Reminders Order Date Submit Date Provider Last Modified By Organization Details Last Modified Time Details Appointments Establish ed 15 2025 09:45A M WES BENNETT PA-C Not available Not available Not available Lab None recorded. Referral None recorded. Procedures None recorded. Surgeries None recorded. Imaging None recorded. Medication Orders None recorded. Patient TargetsNo targets recorded. Patient InstructionsNo instructions recorded. Reason for Referral None Reported. 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 4 02:43:58 Allergic rhinitis caused by pollen 09834397 Active 2022 Allergic rhinitis due to pollen; [...] ; Start Date : 04/14/2021 Not Available [facility] 02:44:01 Allergic rhinitis 27450110 Active 2023 Allergic rhinitis: Due to other [...] 11:17 AM (477.8) Not Not Available [facility] 01:08:16 Perennial allergic rhinitis 102393429 Active 2023 FANI PHAN [place] [address], [place], [address] , [place] - [facility] 14:10:52 Problem Notes None recorded. Procedures Surgical History Date Name Laterality Status Provider Name and Address Organization Details Recorded Time 07/30/20 25 Allergy Immunotherapy Injections completed ABBY NORWOODZEC, RMA [address], [place], [address], [place] - [facility] 07/30/2025 14:03:25 06/25/20 25 Allergy Immunotherapy Injections completed ABBY ENMAZEC, RMA [address], [place], [address], [place] [facility] 06/25/2025 15:59:23 05/28/20 25 Allergy Immunotherapy Injections completed ABBY ENMAZEC, RMA [address], [place], [address], [place] [facility] 05/28/2025 13:48:52 04/23/20 25 Allergy Immunotherapy Injections completed ABBY CARREROC, RMA [address], [place], [address], [place] [facility] 04/23/2025 14:05:22 03/27/20 25 Allergy Immunotherapy Injections completed DUANE SANCHES RN [address] [facility] [address] [place] [address], [address], [facility] - [facility] 03/27/2025 14:04:30 02/25/20 25 Allergy Immunotherapy Injections completed DUANE SANCHES RN [address] [facility],[address] [place] [address], [address], [place] [facility] 02/24/2025 13:25:43 01/31/20 25 Allergy Immunotherapy Injections completed ABBY CASTILLO, RMA [address], [place], [address], [place] [facility] 01/30/2025 15:08:53 01/02/20 25 Allergy Immunotherapy Injections completed DUANE SANCHES RN [address] [facility] [address], [place], [address], [place] [facility] 01/02/2025 10:27:33 12/12/19 25 Allergy Immunotherapy Injections completed ABBY CASTILLO RMA [address], [place], [address], [place] [facility] 12/12/2024 13:34:04 11/21/19 25 Allergy Immunotherapy Injections completed WARD BRAUNA [address], [place], [address], [place] [facility] 11/21/2024 13:47:53 11/07/20 24 Allergy Immunotherapy Injections completed DUANE SANCHES RN [address], [place], [address], [place] [facility] 11/07/2024 13:04:08 10/10/20 24 Allergy Immunotherapy Injections completed KERI BRAUN [address], [place], [address], [place] [facility] 10/10/2024 13:54:38 09/26/20 24 Allergy Immunotherapy Injections completed ABBY CASTILLO RMA [address], [place], [address], [place] [facility] 09/26/2024 14:51:04 09/05/20 24 Allergy Immunotherapy Injections completed DUANE SANCHES RN [address] [place] [address], [address], [place] [facility] 09/05/2024 14:03:45 08/22/20 24 Allergy Immunotherapy Injections completed ABBY CASTILLO RMA [address], [place], [address], [place] [facility] 08/22/2024 13:26:59 08/07/20 24 Allergy Immunotherapy Injections completed ABBY CASTILLO RMA [address], [place], [address], [place] [facility] 08/07/2024 11:24:46 07/11/20 24 Allergy Immunotherapy Injections completed WARD BRAUNA [address], [place], [address], [place] [facility] 07/11/2024 14:11:34 06/27/20 24 Allergy Immunotherapy Injections completed FANI RAVEN, RMA [address], [place], [address], [facility] - [facility] 06/27/2024 10:18:08 06/10/20 24 Allergy Immunotherapy Injections completed ABBY CASTILLO, RMA [address], [place], [address], [facility] - [facility] 06/10/2024 14:04:41 05/30/20 24 Allergy Immunotherapy Injections completed ABBY CARREROC, RMA [address], [place], [address], [facility] - [facility] 05/30/2024 14:13:36 05/09/20 24 Allergy Immunotherapy Injections completed FANIBeverly PHAN, RMA [address], [place], [address], [facility] - [facility] 05/09/2024 11:38:27 04/25/20 24 Allergy Immunotherapy Injections completed ABBY CASTILLO, RMA [address], [place], [address], [facility] - [facility] 04/25/2024 14:09:19 04/11/20 24 Allergy Immunotherapy Injections completed FANIBeverly PHAN, RMA [address], [place], [address], [facility] - [facility] 04/11/2024 14:11:07 Imaging Results None recorded. Procedure Notes None recorded. Medical Equipment None Reported. Allergies Allergen ID Allergen Name Allergen Category Reaction Reaction Severity Criticality Documentation Date Start Date Code Code System Note Provider Name and Address Organization Details Recorded Time 412316 Penicilli n Not available hives Not available Not available 04/01/2024 69077 RxNorm React ion: other react ion, Hives ; Not Available [facility] 01:07:46 Medications Name Sig Start Date Stop Date Status Note LastModified by Organization Details LastModified Time clindamycin HCl 300 mg capsule TAKE 1 CAPSULE BY MOUTH EVERY 6 HOURS FOR 7 DAYS 07/03 completed Not Available Not Available Not Available Lidocaine Viscous 2 % mucosal solution APPLY 5 ML TOPICALLY 4 TIMES A DAY NEEDED FOR MOUTH SORE PAIN 07/03 completed Not Available Not Available Not Available ondansetron HCl 4 mg tablet TAKE 1 TABLET BY MOUTH EVERY 8 HOURS NEEDED FOR NAUSEA active Not Available Not Available No t Available metronidazo le 500 mg tablet TAKE 1 TABLET BY MOUTH 3 TIMES A DAY FOR 7 DAYS, NO ALCOHOL, TAKE WITH FOOD FOR ABDOMINAL DISCOMFOR T 07/03 completed Not Available Not Available Not Available sulfamethox azole 800 mg-trimetho prim 160 mg tablet TAKE 1 TABLET BY MOUTH 2 TIMES A DAY FOR 7 DAYS, DRINK PLENTY OF FLUIDS 07/03 completed Not Available Not Available Not Available triamcinolo ne acetonide 0.025 % topical [...] EVERY 10-15 MINUTES UNTIL SOLUTION IS GONE 07/03 completed Not Available Not Available Not Available Vitals Date Recorded Body height Body mass index (BMI) Body weight Provider Name and Address Organization Details Last Updated DateTime 07/03/2025 170.18 cm 26.5 kg/m2 50004.11 g [facility] 07/03/2025 09:39:50 Social History None recorded. Functional Status None recorded. Mental Status None recorded. Family History Nothing Reported. Medical History No medical history recorded. Gynecological HistoryNo gynecological history recorded. Obstetrics History GPAL:G 0 P 0 0 0 0 Past Encounters Encounter ID Performer Location Encounter Start Date Encounter Closed Date Diagnosis/Indication Diagnosis SNOMED-CT Code Diagnosis ICD10 Code Diagnosis IMO Codes Diagnosis Note [id number] FANI RAVEN A Allergy 100 [facility],[address] [place] [address] 04/11/2024 14:03:05 04/11/2024 14:33:35 Perennial allergic rhinitis 897195871 J30.89 [id number] [facility], A Allergy 100 [facility],[address] [place] [address] 04/25/2024 14:07:46 04/25/2024 14:51:59 Perennial allergic rhinitis 443917461 J30.89 [id number] DUANE SANCHES RN Allergy [address] [place] [address], [address] [place] [address] 05/09/2024 11:37:41 05/09/2024 12:00:21 Perennial allergic rhinitis 355804475 J30.89 [id number] [facility], A Allergy [address] [place] [address], it[address] [place] [address] 05/30/2024 13:25:19 05/30/2024 14:32:34 Perennial allergic rhinitis 535340406 J30.89 [id number] DUANE SANCHES RN Allergy [address] [place] [address], [address] [place] [address] 06/10/2024 13:27:01 06/10/2024 14:08:21 Perennial allergic rhinitis 687760010 J30.89 [id number] WES BENNETT PA-C [facility] [place] 100 [facility] [place] [address] 06/27/2024 10:36:44 06/27/2024 11:07:41 Allergic rhinitis 96578320 J30.9 Allergic r hinitis caused by pollen 68118450 J30.1 [id number] FANI RAVEN A Allergy 100 [facility],[address] [place] [address] 06/27/2024 10:07:00 06/27/2024 10:57:30 Perennial allergic rhinitis 469018545 J30.89 [id number] [facility], A Allergy 100 [facility],[address] [place] [address] 07/11/2024 14:01:32 07/11/2024 14:19:20 Perennial allergic rhinitis 086699908 J30.89 [id number] DUANE SANCHES RN Allergy [address] [place] [address],[address] [place] [address] 08/07/2024 10:44:16 08/07/2024 11:25:16 Perennial allergic rhinitis [id number] J30.[id number] [facility] All[facility] [address] [place] [address],[address] [place] [address] 08/22/2024 13:16:28 08/22/2024 13:43:27 Perennial allergic rhinitis 028601378 J30.[id number] [facility] Allergy [address] [place] [address],[address] [place] [address] 09/05/2024 13:49:02 09/05/2024 14:04:08 Perennial allergic rhinitis 411287130 J30.[id number] [facility] Allergy [address] [place] [address], [address] [place] [address] 09/26/2024 14:16:37 09/26/2024 14:51:48 Perennial allergic rhinitis 223087951 J30.89 [id number] FANI PHAN [facility] Allergy [address] [place] [address],[address] [place] [address] 10/10/2024 13:18:53 10/10/2024 13:55:13 Perennial allergic rhinitis 542581725 J30.89 [id number] DUANE SANCHES RN Allergy [address] [place] [address],[address] [place] [address] 11/07/2024 10:22:45 11/07/2024 13:04:38 Perennial allergic rhinitis 780549591 J30.89 [id number] FANI PHAN A Allergy [address] [place] [address],[address] [place] [address] 11/21/2024 13:35:54 11/21/2024 13:48:17 Perennial allergic rhinitis 339859047 J30.[id number] [facility] Allergy [address] [place] [address],[address] [place] [address] 12/12/2024 13:29:05 12/12/2024 13:33:29 Perennial allergic rhinitis 186868375 J30.89 [id number] WES BENNETT PA-C [facility] [address] [place] [address] 01/02/2025 09:17:03 01/02/2025 09:54:11 Allergic rhinitis 55377422 J30.9 [id number] FANI PHAN [address] 100 [facility] [place] [address] 01/02/2025 09:18:24 01/02/2025 10:28:09 Perennial allergic rhinitis 841460124 J30.89 [id number] FANI PHAN [facility] Allergy [address] [place] [address] 100 [facility] [place] [address] 01/30/2025 13:12:44 01/30/2025 15:09:23 Perennial allergic rhinitis 977791190 J30.89 [id number] DUANE SANCHES RN Allergy [address] [place] [address], [place] [address] 02/24/2025 13:09:27 02/24/2025 13:27:03 Perennial allergic rhinitis 714681515 J30.89 [id number] DUANE SANCHES RN Allergy [address] [place] [address] 100 [place] [address] 03/27/2025 13:55:32 03/27/2025 14:04:52 Perennial allergic rhinitis 057656248 J30.89 [id number] [facility], A Allergy [address] [place] [address],[facility] [address] [place] [address] 04/23/2025 13:48:41 04/23/2025 14:05:51 Perennial allergic rhinitis 957453905 J30.89 [id number] [facility], A Allergy [address] [place] [address],[facility] [address] [place] [address] 05/28/2025 13:23:35 05/28/2025 13:49:24 Perennial allergic rhinitis 554999512 J30.89 [id number] FANI PHAN [facility] Allergy [address] [place] [address] 100 [place] [address] 06/25/2025 14:15:18 06/25/2025 16:23:18 Perennial allergic rhinitis [id number] J30.89 [id number] WES BENNETT PA-C [facility] [address] 100 [facility] [place] [address] 07/03/2025 09:22:41 07/03/2025 09:51:26 Perennial allergic rhinitis [id number] J30.89 [id number] ABBY CARRERO, [facility] Allergy [address] [place] [address] 07/30/2025 13:24:39 07/30/2025 14:03:47 Perennial allergic rhinitis 810220738 J30.89 Health Concerns Section Related Observation LastModified by Organization Detai ls LastModified Time None Recorded Concern Status LastModified by Organization Details LastModified Time None Recorded Advance Directives Directive None Recorded Payers Insurance Date Sequence Insurance Name Policy Number Policy Chris Covered Member ID Chris Member ID Guarantor Name 07/30/[address] [place] [address] [id number] Diana Lipscomb [id number] Diana Lipscomb Notes Date Note Type Note Provider Name and Address Organization Details Recorded Time 07/03/2025 text/html ROS as noted in the HPI 45-year-old female presents for allergy review. She is now on monthly injections since December. Allergy symptoms are well-controlled. Only taking hydroxyzine nightly. PADMINI VALLADARES MD [address] [place] [address], [place], [address], [facility] - [facility] 07/03/2025 12:45:41 OBGyn Episode No OBEpisode recorded.
== END 2025-08-21 09:24 | disposition home or self-care (01) ==
LOC: HO.MAMMO 09:23
PROVIDERS: Visit Provider Obstetrics & Gynecology
DX: Z12.31 Encounter for screening mammogram for malignant neoplasm of breast (principal)
CPT/HCPCS: 77063; 77067

== ENCOUNTER → 2025-08-21 09:30 | Outpatient (BNV) | payer OTHER, SELFPAY | PROVIDERS: Visit Provider Internal Medicine | DX: Z12.31 Encounter for screening mammogram for malignant neoplasm of breast (principal) | CPT/HCPCS: 77063; 77067 ==